=== PATIENT | male | born 1970 | race Caucasian/White ===

== ENCOUNTER 2022-12-02 01:08 | Inpatient (IN) | payer MEDICAID, SELFPAY ==
--- NOTE | ~2022-12-02 | XR_ITS ---
EXAMINATION: XR FINGER, RIGHT CLINICAL INFORMATION: Pain COMPARISON: None available. TECHNIQUE: Three views of the right third digit. FINDINGS: There is lateral radiocarpal degenerative change with loss of joint space and subchondral sclerosis. There are old healed fractures of the first and fifth metacarpals. There is flexion at the distal interphalangeal joint third digit. There are bony densities along the tip of the distal phalanx third digit. The tuft of the distal phalanx of the third metacarpal is not well seen. There is significant soft tissue swelling about the first digit. XR/XR finger RT min 2V IMPRESSION: Flexion at the distal interphalangeal joint third digit. The tuft of the distal phalanx third digit is not well seen. Bone densities along the soft tissues of the distal phalanx third digit may related to prior fracture. An infectious process is also a consideration. Correlation is needed.
[2022-12-02 01:10] VITALS: BP 180/110; PULSE 98; O2SAT 97
[2022-12-02 01:23] VITALS: BP 168/102; PULSE 86; RESP 16; TEMP 36.8; O2SAT 97; BMI 22.7
--- NOTE | 2022-12-02 01:51 | ED_ITS ---
HPI - Extremity Problem General Chief complaint: Extremity Problem Stated complaint: finger infection Time Seen by Provider: 12/02/22 01:12 Source: patient Mode of arrival: ambulatory History of Present Illness HPI Narrative: 52-year-old male, history of IVDA presents with right middle finger that he feels is infected as it is swollen, red but he denies ability to feel pain in that and states that this is been ongoing for approximately 1 week. He denies any fever, chills, shortness of breath or chest pain/palpitations. He last used today. Related Data Allergies Allergy/AdvReac Type Severity Reaction Status Date / Time No Known Allergies Allergy Unverified 12/16/19 19:38 [No Known Allergies*] Review of Systems Review of Systems: Pertinent positives and negatives as stated in [facility] Past Medical History Source: nursing notes reviewed Medical History IV drug user Polysubstance use disorder Tobacco use disorder Social History Social History Alcohol intake: former Patient Tobacco Use Status: Never used Tobacco Smoked in Last 30 Days: Yes Use of substances other than those prescribed or required for medical reasons: Yes Substance Use Type: Crack/Cocaine and Heroin Advance Directives: No Advance Directives Information Provided: No Physical Exam Vital Signs: Vital Signs: Last Vital Signs Temp 98.1 F 12/02/22 04:20 Pulse 86 12/02/22 04:20 Resp 14 12/02/22 04:20 BP 134/80 12/02/22 04:20 Pulse Ox 95 12/02/22 04:20 O2 Del Method Room Air 12/02/22 04:20 BMI result Body Mass Index 22.7 VITAL SIGNS: Reviewed. GENERAL: Well developed, well nourished, in no acute distress. HEAD: Normocephalic/atraumatic EYES: PERRLA, EOMI EARS: Ext canals without abnormality NOSE: Nares patent bilateral OROPHARYNX: no oral lesions noted, posterior pharynx clear NECK: Supple, no adenopathy LUNGS: Normal breath sounds. No adventitious sounds or accessory muscle use. SpO2<97> CARDIOVASCULAR: Regular rate and rhythm without noted murmurs. ABDOMEN: Soft, non-tender, non-distended with bowel sounds. MUSCULOSKELETAL: No tenderness, deformities, or effusions noted on gross inspection. EXTREMITIES: No cyanosis, clubbing or edema. Bilateral upper extremities with significant track suarez consistent with patient's provided history of IVDA. RIGHT MIDDLE FINGER: Edematous, lack of sensation, boggy, necrotic tip SKIN: Inspection of the skin reveals no rashes NEUROLOGIC: Alert and oriented x 4. Strength and sensation to light touch were grossly intact x 4. Medications Administered Discontinued Medications Generic Name Dose Route Start Last Admin Trade Name Fredelfina PRN Reason Stop Dose Admin Piperacillin Sod/Tazobactam 50 mls @ 100 mls/hr 12/02/22 02:38 12/02/22 04:18 Sod 3.375 gm/ Sodium Chloride IV 12/02/22 03:07 Infused ONCE ONE Infusion Vancomycin HCl 1,000 mg/ 535 mls @ 267.5 mls/hr 12/02/22 02:45 12/02/22 03:54 Vancomycin HCl 750 mg/ Sodium IV 12/02/22 04:44 267.5 mls/hr Chloride ONCE ONE Administration Protocol Lorazepam 0.5 mg 12/02/22 02:29 12/02/22 02:49 Lorazepam 0.5 Mg Tablet PO 12/02/22 02:30 0.5 mg ONCE ONE Administration Nicotine 21 mg 12/02/22 02:29 12/02/22 02:49 Nicotine 21 Mg Patch.Td24 TRANSDERMA 12/02/22 02:30 21 mg ONCE ONE Administration Medical Decision Making Medical Decision Making [facility] Narrative: 52-year-old male with history and clinical presentation, DDX: Gangrene of right middle finger inciting etiology unclear but there is black necrosis at the tip and pre limit view of the x-ray demonstrates rate appears to be a dislocated tuft that appears necrotic, after extensive discussion with the patient he has agreed to stay for admission and further evaluation by Hand surgery. Patient will receive IV fluids, antibiotics, lactic acid and blood cultures. I reviewed all investigations and hematologic indices are negative for leukocytosis or left shift but there is a noted elevation in platelet count and a normocytic anemia. Hematologic indices do not demonstrated any electrolyte or liver enzyme abnormalities and there is no MIGNON. X-rays significant for bony destruction and otherwise my interpretation is in agreement with radiology's impression. I discussed case with inpatient hospitalist who accepts admission. Differential Diagnosis Differential Diagnoses: The differential diagnosis associated with the presentation includes Please see the discussion above Admission/Observation Consideration of admission/observation: Escalation of care including admission/observation considered Please see the discussion above Consult Healthcare Provider Management of the patient was discussed with: Hospitalist Please see the discussion above Lab Data MDM Lab Attestation statement: I reviewed the patient's lab results. Please see the discussion above 12/02/22 03:29 12/02/22 03:29 Independent Interpretation I performed an independent interpretation of an: EKG Interpretation: Normal sinus rhythm, HR-83, no STEMI, ID/QRS/QTC are within normal limits. Radiology Impression Radiologist Impression: Please see the discussion above Chronic Conditions Patient?s care impacted by: Other Chronic substance use Social Determinants Patient?s care significantly limited by Social Determinants of Health including: Alcoholism and drug addiction in family Procedures EJ/Peripheral Line Arm R: Time Out Performed: No Skin Cleansed in Sterile Fashion: Yes Size (gauge): 20 IV Secured and Dressing Applied: Yes Patient Tolerated Procedure: well Additional Comments: This peripheral IV was placed by ultrasound. Arm L: Time Out Performed: No Skin Cleansed in Sterile Fashion: Yes Size (gauge): 18 IV Secured and Dressing Applied: Yes Patient Tolerated Procedure: well Additional Comments: This IV was placed by ultrasound. Critical Care Time Critical Care Time Critical Care Time: Yes Total Critical Care Time: 30 Attestation: I personally attest to this time spent taking care of the patient. Discharge Plan Discharge Clinical Impression: Polysubstance use disorder, IV drug user, Wet gangrene Patient Disposition: Admitted As Inpatient
--- NOTE | 2022-12-02 02:22 | PC.NURSE ---
Attempted to establish IV x2 without success. Patient tolerated procedure well. Provider aware.
--- NOTE | 2022-12-02 02:39 | ECG_ITS ---
Test Reason : SUBSTANCE USE Blood Pressure : / mmHG Vent. Rate : 083 BPM Atrial Rate : 083 BPM P-R Int : 172 ms QRS Dur : 088 ms QT Int : 386 ms P-R-T Axes : 079 080 070 degrees QTc Int : 453 ms Normal sinus rhythm Normal ECG No previous ECGs available Referred By: Yina Ivan Electronically Signed By:TRAE KAY
[2022-12-02] MEDS: Nicotine 21 MG PATCH.TD24 TRANSDERMA (02:49)
[2022-12-02] MEDS: LORazepam 0.5 MG TABLET PO (02:49)
--- NOTE | 2022-12-02 03:13 | P.HPHOSP_ITS ---
History of Present Illness Date of Service: 12/02/22 Chief Complaint: Finger infection This is a 52-year-old male with pertinent history of IV polysubstance use disorder, tobacco use disorder who presents to the emergency department for evaluation of finger infection. Patient states he 1st noticed swelling of his right middle finger about a week ago. It has been progressive, red and warm. Admits to using IV heroin and cocaine. Patient states that it intermittently drains purulent fluid. He denies fever, chills, chest discomfort, palpitations, shortness of breath, changes in urinary or bowel habits. In the emergency department, imaging with concerns for underlying infection Review of Systems Constitutional: Constitutional: Reports no additional constitutional complaints Cardiovascular: Cardiovascular: Reports no additional cardiovascular co mplaints Respiratory: Respiratory: Reports no additional respiratory complaints Gastrointestinal: Gastrointestinal: Reports no additional gastrointestinal complaints Genitourinary: Genitourinary: Reports no additional male genitourinary c omplaints Musculoskeletal: Musculoskeletal: Reports arthralgias and Reports joint swelling [facility] Medical History IV drug user Polysubstance use disorder Tobacco use disorder Pertinent family history: No family history of early CAD Social History Alcohol intake: former Patient Tobacco Use Status: Never used Tobacco Substance Use Type: Crack/Cocaine and Heroin Meds Allergies Allergy/AdvReac Type Severity Reaction Status Date / Time No Known Allergies Allergy Unverified 12/16/19 19:38 [No Known Allergies*] Active Medications: Current Medications Vancomycin HCl 1,000 mg/Vancomycin HCl 750 mg/ Sodium Chloride 535 mls @ 267.5 mls/hr IV ONCE ONE; Protocol Stop: 12/02/22 04:44 Pharmacy Consult (Consult Rx Vancomycin Dosing) 1 each MISCELLANE DAILY PRN PRN Reason: Consult order Physical Exam Vital Signs and Narrative: Vital Signs: Last Vital Signs Temp 98.3 F 12/02/22 01:23 Pulse 86 12/02/22 01:23 Resp 16 12/02/22 01:23 BP 168/102 H 12/02/22 01:23 Pulse Ox 97 12/02/22 01:23 O2 Del Method Room Air 12/02/22 01:23 BMI result Body Mass Index 22.7 Middle-aged male lying in bed in no distress Neck supple, no JVD Regular rate and rhythm, S1-S2 heard Regular breath sounds bilaterally, no wheezing or crackles appreciated Abdomen soft nontender, no guarding, no rigidity Patient is awake, alert and oriented to self, place, time and person ; no focal motor deficit Skin: Bilateral upper extremities with track suarez Right middle finger edematous, warm, erythematous with purulent drainage ; necrotic tip Psych: Normal mood No pedal edema Results Labs 12/02/22 03:29 12/02/22 03:29 Assessment and Plan (1) Cellulitis: Status: Acute (2) Wet gangrene: Status: Acute Plan This is a 52-year-old male with pertinent history of IV polysubstance use disorder, tobacco use disorder who presents to the emergency department for evaluation of finger infection. #. Purulent cellulitis of digit with wet gangrene. Concern for underlying bone infection. Will admit patient and initiate IV empiric antibiotics. Resuscitated with IV crystalloids. Consulting orthopedic surgery, appreciate assistance. Follow blood cultures #. Tobacco use disorder. Counseled regarding cessation. Offered nicotine patch #. Poly substance use disorder. Consulted Addiction Team and care team. Monitor for withdrawal DVT prophylaxis: Hold Lovenox until surgical evaluation Full code Admit as inpatient and will require two night minimum hospital stay for IV antibiotics. Specialist consult pending Time Spent With Patient Time: Total time managing care of this patient today ____ minutes. Quality Stroke Does the patient have a stroke diagnosis?: No VTE Prior VTE?: No VTE Risk Level:: Medical - moderate - high VTE Device Contraindication: Treatment Not Indicated VTE Drug Contraindication: Treatment Not Indicated
[2022-12-02 03:35] LABS: Basophils Percent Auto 0.4 % (0-2); Eosinophils Absolute Auto 0.3 X10*3/uL (0.0-0.4); Eosinophils Percent Auto 3.4 % (0-4); Hematocrit 39.3 % (42.0-52.0); Hemoglobin 13.2 g/dl (14.0-18.0); Imm Gran Abs Auto 0.03 X10*3/uL (0.00-0.03); Imm Gran Pct Auto 0.3 % (0.0-0.4); Lymphocytes Absolute Auto 2.1 X10*3/uL (1.2-4.9); Lymphocytes Percent Auto 23.1 % (20-40); MANUAL DIFF FLAG NO; Mean Corpuscular HGB Conc 33.6 g/dl (31.0-36.0); Mean Corpuscular Hemoglobin 30.6 pg (27.0-33.0); Mean Corpuscular Volume 91.2 fL (80.0-98.0); Mean Platelet Volume 8.8 fL (9.4-12.4); Monocytes Absolute Auto 0.6 X10*3/uL (0.1-1.2); Neutrophils Absolute Auto 5.9 x10*3/uL (2.0-8.3); Neutrophils Percent Auto 65.8 % (45-73); Platelet Count 484 X10*3/uL (160-400); Red Blood Count 4.31 X10*6/uL (4.60-5.80); Red Cell Distribution Width 12.9 % (11.0-16.0)
[2022-12-02] MEDS: Piperacillin Sodium/Tazobactam 3.375 GM in 0.9 % Sodium Chloride 50 ML IV (03:36)
[2022-12-02 03:52] LABS: Lactic Acid 0.8 mmol/L (0.5-2.0)
[2022-12-02] MEDS: vancomycin HCL 1,000 MG, vancomycin HCL 750 MG in 0.9 % Sodium Chloride 500 ML 267.5 MG IV (03:54)
--- NOTE | 2022-12-02 03:57 | PC.NURSE ---
Pt is A&Ox4, GCS 15, with warm, dry skin, resting quietly in bed at this time. Dr Ivan placed bilateral IV's via ultrasound, medications administered per MAY. Pt reports no pain at this time, but was complaining of pressure in his right middle finger. Dr Ivan drained some puss from the finger and pt stated some relief.
[2022-12-02 04:03] LABS: Alanine Aminotransferase 10 U/L (0-40); Alkaline Phosphatase 79 U/L (39-117); Anion Gap 11 (12-20); Aspartate Amino Transferase 16 U/L (5-37); Bilirubin Total 0.3 mg/dL (0.0-1.0); Blood Urea Nitrogen 15 mg/dL (9-16); Calcium 9.7 mg/dL (8.4-10.2); Carbon Dioxide 31 mmol/L (22-29); Chloride 102 mmol/L (96-108); Creatinine Clr Calc Pharmacy 92.6; Estimated Glomerular Filt Rate > 60; Glucose Random 110 mg/dL (60-115); Potassium 3.9 mmol/L (3.3-5.1); Sodium 140 mmol/L (135-145); Total Protein 7.7 g/dL (6.5-8.0)
[2022-12-02 04:20] VITALS: BP 134/80; PULSE 86; RESP 14; TEMP 36.7; O2SAT 95
--- OUTSIDE RECORDS SUMMARY | 2022-12-02 04:46 | XMS_ITS | Continuity of Care Document ---
Author Name Unknown Organization [facility] Address [address] [place] [address]- Care Team Providers Care Menagerie Superintendent Name Role Phone Zion SAHNI, Brenda Perry Primary Care Physician [id number] Date[facility] - 02/02/21 [facility] [address] [place] [address]- Encounter Diagnosis Hand pain, right(Discharge Diagnosis) - 01/26/21 Wrist pain, right(Discharge Diagnosis) - 01/26/21 Attending Physician: Mireya CERVANTES, Julieta Referring Physician: Brenda Donovan MD Allergies, Adverse Reactions, Alerts Substance Reaction Severity Status NKA Active Immunizations Given and Recorded Vaccine Date Status Refusal Reason influenza virus vaccine, inactivated 06/03/16 Give n influenza virus vaccine, inactivated 12/14/13 Give n influenza virus vaccine, inactivated 1 05/31/10 Gi dangelo tetanus/diphtheria/pertussis, acel(Tdap) 12/14/13 Given 1Admin Note: per pt Medications amLODIPine 2.5 mg oral tablet 1, tablet, By Mouth, Daily, # 90 tablet, Refills 1, Tot. Refills 1, Maintenance, 10/04/16 10:03:51,Route to Pharmacy Electronically, [id number], [facility]/pharmacy #[id number] Start Date: 10/04/16 Stop Date: 04/02/17 Status: Ordered folic acid 1 mg oral tablet 1 tablet = 1 mg, By Mouth, Daily, 0 Refills, Maintenance Start Date: 12/02/10 Status: Ordered naproxen 500 mg oral tablet 1 tablet = 500 mg, By Mouth, 2 times a day, for 14 days, # 28 tablet, 0 Refills, Acute 02/09/21 15:53:00 EST, 01/26/21 15:53:00 EDT, Tablet, [facility]/pharmacy #[id number], Partial fill upon patient request if the prescription is for a schedule II opioid drug., 1... Start Date: 01/26/21 Stop Date: 02/09/21 Status: Ordered Narcan 4 mg/0.1 mL nasal spray = 4 mg, Nares, Both, Once, # 2 each, 0 Refills, Soft Stop, 10/05/16 12:27:24 Start Date: 10/05/16 Status: Ordered sertraline 100 mg oral tablet 1 tablet = 100 mg, By Mouth, Daily, # 90 tablet, 1 Refills, Maintenance, 10/04/16 10:03:39 Start Date: 10/04/16 Stop Date: 04/02/17 Status: Ordered Problem List Condition Effective Dates Status Health Status Inform ant Alcohol dependence syndrome(Confirmed) Active Herpes labialis(Confirmed) Active Hyperlipidemia(Confirmed) Active Hypertension(Confirmed) 07/25/10 Active Mood disorder(Confirmed) Active Diagnosis Diagnosis Type Effective Dates Health Status Cl inical Service Informant Hand pain, right Discharge Diagnosis 01/26/21 Wrist pain, right Discharge Diagnosis 01/26/21 Vital Signs Most recent to oldest [Reference Range]: 1 Height 176 cm (01/26/21 3:23 PM) Weight 65.8 kg (01/26/21 3:23 PM) Pulse Rate [55-90 bpm] 79 bpm (01/26/21 3:23 PM) Body Mass Index [18.5-24.99] 21.24 (01/26/21 3:23 PM) Blood Pressure [90-138/55-84 mm Hg] 120/ 80mm Hg (01/26/21 3:23 PM) Temperature Route Temporal (01/26/21 3:23 PM) Social History Social History Type Response Smoking Status Current every day fidel kirby; Tobacco user in household: Yes; Type: Cigarettes; Tobacco use times per day: 1 ppd- 1.5 ppd; Number of years: 26; Started at age: 20; entered on: 06/03/16 Sex
--- OUTSIDE RECORDS SUMMARY | 2022-12-02 04:46 | XMS_ITS | Continuity of Care Document ---
Author Name Unknown Organization [facility] Address [address] [place] [address]- Care Team Providers Care Information Systems Supervisor Name Role Phone Zion SAHNI, Brenda Perry Primary Care Physician [place] [facility] [place]s): 08/02/21 - 09/01/21 [facility] [address] [place], [place] [address] Attending Physician: Ivett Salcedo Admitting Physician: Ivett Salcedo Referring Physician: AdmtrIvett Allergies, Adverse Reactions, Alerts No Known Allergies Immunizations Given and Recorded Vaccine Date Status [...] 1, Maintenance, 10/04/16 10:03:51,Route to Pharmacy Electronically, [id number], [facility]/pharmacy #[id number] Start Date: 10/04/16 Stop Date: 04/02/17 Status: Ordered folic acid 1 mg oral tablet 1 tablet = 1 mg, By Mouth, Daily, 0 Refills, Maintenance Start Date: 12/02/10 Status: Ordered Narcan 4 mg/0.1 mL nasal [...] Active Hypertension(Confirmed) 07/25/10 Active Mood disorder(Confirmed) Active Social History Social History Type Response Smoking Status Current every day fidel kirby; Tobacco user in household: Yes; Type: Cigarettes; Tobacco use times per day: 1 ppd- 1.5 ppd; Number of years: 26; Started at age: 20; entered on: 06/03/16 Sex
--- OUTSIDE RECORDS SUMMARY | 2022-12-02 04:46 | XMS_ITS | Continuity of Care Document ---
Author Name Unknown Organization [facility] Address [address] [place] [address]- Care Team Providers Care Platform Stapler Name Role Phone Zion SAHNI, Brenda Perry Primary Care Physician Encounter [facility] Date(s): 02/20/21 - 03/22/21 [facility] [address] [place], [place] [address] Attending Physician: Ivett Salcedo Admitting Physician: Ivett Salcedo Referring Physician: AdmtrIvett Allergies, Adverse Reactions, Alerts Substance Reaction Severity [...] 1, Maintenance, 10/04/16 10:03:51,Route to Pharmacy Electronically, [id number], [facility]/pharmacy #[id number] Start Date: 10/04/16 Stop Date: 04/02/17 [...]
--- OUTSIDE RECORDS SUMMARY | 2022-12-02 04:46 | XMS_ITS | Continuity of Care Document ---
Author Name Unknown Organization [facility] ter Address [address] [place] [address]- Care Team Providers Care Repairer Typewriter Name Role Phone Brenda Donovan MD Primary Care Physician [phone] [facility] Date(s): 12/11/21 - 12/12/[address] [address]- Discharge Disposition: A-D/C Home Attending Physician: Rosanne Maldonado DO Admitting Physician: Rosanne Maldonado DO Referring Physician: Not on Staff, Referring MD Allergies, Adverse Reactions, Alerts No Known Allergies [...] 1, Maintenance, 10/04/16 10:03:51,Route to Pharmacy Electronically, [id number], [facility]/pharmacy #[id number] Start Date: 10/04/16 Stop Date: 04/02/17 [...] Active Hypertension(Confirmed) 07/25/10 Active Mood disorder(Confirmed) Active Vital Signs Most recent to oldest [Reference Range]: 1 2 3 Weight 68 kg (12/12/21 9:05 AM) Oxygen Saturation [94-100 %] 98 % (12/12/21 9:05 AM) 95 % (12/12/21 5:57 AM) 91 % *L* (12/11/21 10:22 PM) Pulse Rate [55-90 bpm] 97 bpm *H* (12/12/21 9:05 AM) 101 bpm *H* (12/12/21 5:57 AM) 101 bpm *H* (12/11/21 10:22 PM) Blood Pressure [90-138/55-84 mm Hg] 121/81mm Hg (12/12/21 9:05 AM) 114/81mm Hg (12/12/21 5:57 AM) 117/65mm Hg (12/11/21 10:22 PM) Respiratory Rate [16-30 br/min] 16 br/min (12/12/21 9:05 AM) 16 br/min (12/12/21 5:57 AM) 18 br/min (12/11/21 10:22 PM) Temperature [96.8-100.4 DegF] 98.7 DegF (12/12/21 9:05 AM) 98.6 DegF (12/11/21 10:22 PM) Mode of Delivery (Oxygen) Room air (12/12/21 9:05 AM) Room air (12/12/21 5:57 AM) Room air (12/11/21 10:22 PM) Temperature Route Oral (12/12/21 9:05 AM) Oral (12/11/21 10:22 PM) Social History Social History Type Response Smoking Status Current every day sm oker; Tobacco user in household: Yes; Type: Cigarettes; Tobacco use times per day: 1 ppd- 1.5 ppd; Number of years: 28; Started at age: 20; entered on: 06/03/16 Sex Care Team Personnel Name: Zion SAHNI, Brenda Perry Address: [address] [place] [address] Adult & Pediatric Med [place], [place] [address]
--- OUTSIDE RECORDS SUMMARY | 2022-12-02 04:46 | XMS_ITS | Continuity of Care Document ---
Author Name Unknown Organization [facility] Address [address] [place] [address]- Care Team Providers Care Medical Billing And Coding Specialist Name Role Phone Zion SAHNI, Brenda Perry Primary Care Physician [phone] Encounter [facility] [place] Date(s): 02/16/21 - 03/22/21 [facility] [address] [place], [place] [address] Attending Physician: Parker David MD Allergies, Adverse Reactions, Alerts Substance Reaction [...] 1, Maintenance, 10/04/16 10:03:51,Route to Pharmacy Electronically, [id number], [facility]/pharmacy #[id number] Start Date: 10/04/16 Stop Date: 04/02/17 [...]
--- OUTSIDE RECORDS SUMMARY | 2022-12-02 04:46 | XMS_ITS | Continuity of Care Document ---
Author Name Unknown Organization [facility] Address [address] [place] [address]- Care Team Providers Care Accountant Helper Name Role Phone Brenda Donovan MD Primary Care Physician Encounter [facility] [place] Date(s): 05/17/22 - 06/16/22 [facility] [address] [place], [place] [address] Encounter Diagnosis Cellulitis of arm(Discharge Diagnosis) - 05/17/22 Cellulitis of leg(Discharge Diagnosis) - 05/17/22 Allergies, Adverse Reactions, Alerts No Known Allergies [...] 1, Maintenance, 10/04/16 10:03:51,Route to Pharmacy Electronically, [id number], [facility]/pharmacy #[id number] Start Date: 10/04/16 Stop Date: 04/02/17 [...] Date: 04/02/17 Status: Ordered Problem List Condition Confirmation Course Effective Dates Status H ealth Status Informant Alcohol dependence syndrome Confirmed Active Cellulitis of leg Confirmed Active Cellulitis of arm Confirmed Active Herpes labialis Confirmed Active Hyperlipidemia Confirmed Active Hypertension Confirmed 07/25/10 Active Intravenous drug abuse, continuous Confirmed Active Mood disorder Confirmed Active Diagnosis Diagnosis Type Effective Dates Health Status Clinical Service Informant Cellulitis of arm Discharge Diagnosis 05/17/22 Non-Specified Cellulitis of leg Discharge Diagnosis 05/17/22 Non-Specified Social History Social History Type Response Smoking Status Current every day sm oker; Tobacco user in household: Yes; Type: Cigarettes; Tobacco use times per day: 1 ppd- 1.5 ppd; Number of years: 28; Started at age: 20; entered on: 06/03/16 Sex Patient Care team information Care Team Personnel Name: Zion SAHNI, Brenda Perry Position: [facility] Primary Care Physician Member Role: PCP Address: Address: [address] [place] [address] Adult [place] [address]- Care Team Related Persons Name: BLESSING QURESHI Address: home [address] [address] Name: KAREN NOYOLA Address: [address] [place] [address] Name: NATY NOYOLA Address: [address] [place] [address]
--- OUTSIDE RECORDS SUMMARY | 2022-12-02 04:46 | XMS_ITS | Continuity of Care Document ---
Author Name Unknown Organization [facility] Address [address] [place] [address]- Care Team Providers Care Chief Engineer Research Name Role Phone Brenda Donovan MD Primary Care Physician [phone] Encounter [facility] [place] Date(s): 05/03/22 - 06/02/22 [facility] [address] [place], [place] [address] Attending Physician: AdmIvett mary Admitting Physician: AdmtrIvett Referring Physician: Admtr, Ar8 Allergies, Adverse Reactions, Alerts No Known Allergies [...] 1, Maintenance, 10/04/16 10:03:51,Route to Pharmacy Electronically, [id number], [facility]/pharmacy #[id number] Start Date: 10/04/16 Stop Date: 04/02/17 [...] continuous Confirmed Active Mood disorder Confirmed Active Social History Social History Type Response Smoking Status Current every day sm oker; Tobacco user in household: Yes; Type: Cigarettes; Tobacco use times per day: 1 ppd- 1.5 ppd; Number of years: 28; Started at age: 20; entered on: 06/03/16 Sex Patient Care team information Care Team Personnel Name: Zion SAHNI, Brenda Perry [facility] Primary Care Physician Member Role: PCP Address: Address: [address] [place] [address] Adult [place] [address]- Care Team Related Persons Name: BLESSING QURESHI Address: home [address] [address] Name: KAREN NOYOLA Address: [address] [place] [address] Name: NATY NOYOLA Address: home [address] [place] [address]
--- OUTSIDE RECORDS SUMMARY | 2022-12-02 04:46 | XMS_ITS | Continuity of Care Document ---
Author Name Unknown Organization [facility] Address [address] [place] [address]- Care Team Providers Care Dietitian Consultant Name Role Phone Brenda Donovan MD Primary Care Physician [phone] Encounter [facility] Date(s): 05/03/22 - 08/01/22 [facility] [address] [place], [place] [address] Attending Physician: Brenda Donovan MD Allergies, Adverse Reactions, Alerts No Known [...] 1, Maintenance, 10/04/16 10:03:51,Route to Pharmacy Electronically, [id number], [facility]/pharmacy #[id number] Start Date: 10/04/16 Stop Date: 04/02/17 [...] Personnel Name: Zion SAHNI, Brenda Perry Position: [facility] Primary Care Physician Member Role: PCP Address: Address: [address] [place] [address] [place] [address]- Care Team Related Persons Name: BLESSING QURESHI Address: home [address] [address] Name: KAREN NOYOLA Address: [address] [place] [address] Name: NATY NOYOLA Address: [address] [place] [address]
--- OUTSIDE RECORDS SUMMARY | 2022-12-02 04:46 | XMS_ITS | Continuity of Care Document ---
Author Name Unknown Organization [facility] Address [address] [place] [address]- Care Team Providers Care Program Developer Name Role Phone Zion SAHNI, Brenda Perry Primary Care Physician [phone] [id number] - [facility] [address] [place], [place] [address] Attending Physician: Brenda Donovan MD Allergies, Adverse [...] 1, Maintenance, 10/04/16 10:03:51,Route to Pharmacy Electronically, [id number], [facility]/pharmacy #[id number] Start Date: 10/04/16 Stop [...]
--- OUTSIDE RECORDS SUMMARY | 2022-12-02 04:46 | XMS_ITS | Continuity of Care Document ---
Author Name Unknown Organization [facility] Address [address] [place] [address]- Care Team Providers Care Translator/Interpreter Name Role Phone Brenda Donovan MD Primary Care Physician Encounter [facility] R [id number] Date(s): 05/04/21 - 09/01/21 [facility] [address] [place], [place] [address] Attending Physician: Brenda Donovan MD Allergies, [...] 1, Maintenance, 10/04/16 10:03:51,Route to Pharmacy Electronically, [id number], [facility]/pharmacy #[id number] Start Date: 10/04/16 Stop Date: 04/02/17 [...]
--- OUTSIDE RECORDS SUMMARY | 2022-12-02 04:46 | XMS_ITS | Continuity of Care Document ---
Author Name Unknown Organization [facility] Address [address] [place] [address]- Care Team Providers Care Ice Seller Name Role Phone Brenda Donovan MD Primary Care Physician Encounter [facility] [id number] Date(s): 02/14/21 - 03/22/21 [facility] [address] [place], [place] [address] Attending Physician: Not on Staff, Attending MD Allergies, Adverse Reactions, Alerts Substance Reaction [...] 1, Maintenance, 10/04/16 10:03:51,Route to Pharmacy Electronically, [id number], [facility]/pharmacy #[id number] Start Date: 10/04/16 Stop Date: 04/02/17 [...]
[2022-12-02 05:07] LABS: C Reactive Protein 0.83 mg/dL (< or = 0.50)
[2022-12-02 05:58] VITALS: BMI 22.9
--- NOTE | 2022-12-02 06:24 | PC.NURSE ---
Addendum entered by Abigail Jose RN 12/02/22 06:44: Pt refused to have the flu shot. Original Note: Pt arrived from the ED at 0556 per stretcher alert and oriented, denies any discomfort, noted with dressing on right mid finger CDI, Bilat arms and hands are swollen and red also with multiple scabbed lesions, +PP, +CMS, plan of care and safety measures instructed, use of callbell instructed, pt verbalized feeling tired, and was able to answer questions appropriately.
[2022-12-02 07:05] VITALS: BP 141/82; PULSE 79; RESP 17; TEMP 36.1; O2SAT 96
--- NOTE | 2022-12-02 07:23 | PHA.PROG ---
"Admission Date/Time: December 02, 2022 03:12 Indication: Skin Weight in k.3 kg Adjusted body weight in Kg: [place] body weight in Kg: Obesity Dosing Indication % IBW: Serum Creatinine - Last 168 Hours 12/02/22 03:29 Creatinine 0.94 Estimated CrCl and GFR - Last 168 Hours 12/02/22 03:29 Estim Creat Clear Calc 92.6 Estimated GFR > 60 Vancomycin Loading Dose: 1750mg X 1 Current Vancomycin Dosing Regimen: 1000mg Q12H Vancomycin Monitoring using AUC goal of 400 - 600 range with trough as surrogate marker: 462 mg/L Date and Time for next Vancomycin Level to be drawn: 12/03/22 @1400 Pharmacist Comments on Vancomycin Plan: Predicted trough of 11.9, will continue to monitor renal function Vancomycin dosing will take advantage of [employer] as a clinical decision support tool that uses Bayesian modeling to calculate individual patient's pharmacokinetic parameters and forecast the patient's drug concentration time course with the target goal AUC 24 range of 400 - 600 mg/L/hr."
[2022-12-02] MEDS: cefTRIAXone sodium 1 GM in 0.9 % Sodium Chloride 50 ML IV (08:35)
[2022-12-02] MEDS: 0.9 % Sodium Chloride Flush 3 ML SYRINGE IVFLUSH (08:39)
[2022-12-02 09:15] LABS: MANUAL DIFF FLAG NO
[2022-12-02 09:17] LABS: Basophils Percent Auto 0.2 % (0-2); Eosinophils Absolute Auto 0.2 X10*3/uL (0.0-0.4); Eosinophils Percent Auto 2.8 % (0-4); Hematocrit 40.7 % (42.0-52.0); Hemoglobin 13.7 g/dl (14.0-18.0); Imm Gran Abs Auto 0.02 X10*3/uL (0.00-0.03); Imm Gran Pct Auto 0.2 % (0.0-0.4); Lymphocytes Absolute Auto 1.7 X10*3/uL (1.2-4.9); Lymphocytes Percent Auto 20.8 % (20-40); Mean Corpuscular HGB Conc 33.7 g/dl (31.0-36.0); Mean Corpuscular Hemoglobin 30.8 pg (27.0-33.0); Mean Corpuscular Volume 91.5 fL (80.0-98.0); Mean Platelet Volume 8.8 fL (9.4-12.4); Monocytes Absolute Auto 0.6 X10*3/uL (0.1-1.2); Monocytes Percent Auto 6.7 % (2-11); Neutrophils Absolute Auto 5.8 x10*3/uL (2.0-8.3); Neutrophils Percent Auto 69.3 % (45-73); Platelet Count 387 X10*3/uL (160-400); Red Blood Count 4.45 X10*6/uL (4.60-5.80); White Blood Count 8.3 X10*3/uL (4.8-10.8)
[2022-12-02 10:04] LABS: Anion Gap 11 (12-20); Blood Urea Nitrogen 13 mg/dL (9-16); Carbon Dioxide 25 mmol/L (22-29); Chloride 107 mmol/L (96-108); Creatinine Clr Calc Pharmacy 95.5; Estimated Glomerular Filt Rate > 60; Glucose Random 108 mg/dL (60-115); Potassium 4.1 mmol/L (3.3-5.1); Sodium 139 mmol/L (135-145)
--- NOTE | 2022-12-02 10:11 | PHA.MEDREC ---
Pharmacy Consult ? Medication Reconciliation Patient unable to confirm if he is currently in any prescribed medicatioins. Pharmacy has completed the medication reconciliation.
--- NOTE | 2022-12-02 10:28 | PM.EVENT ---
Event Note Date of Service: 12/02/22 Event Note: Personally seen and examined. A/P Per H and P of this morning, pending ortho consult... See imaging in ED note Time Spent With Patient Time: Total time managing care of this patient today ____ minutes.
--- NOTE | 2022-12-02 12:12 | P.DS_ITS ---
DS: Providers Provider Date of Service: 12/02/22 Date of admission: 12/02/22 03:12 Primary care physician: Brenda Donovan MD Consults: 12/02/22 02:37 Addiction Medicine Stat Consulting Provider: Addiction Covering Reason for consultation: 52M requires inpt for infected finger and every day heroin Has provider been notified: No 12/02/22 03:13 Consult to Care Team Routine Comment: Reason for consultation: polysubstance use disorder 12/02/22 04:38 Consult to Orthopedics Routine Consulting Provider: [facility] Reason for consultation: finger infection DS: Diagnosis Discharge Diagnosis (1) Cellulitis: Status: Acute (2) Wet gangrene: Status: Acute DS: Summary Hospital Course Hospital Course: Patient was admittted this morning for cellulitis and gangrene of right middle finger and was been treated with IV antibiotics and surgery planned ampuation. Unfortuately he decided to leave against medical and claim he will come back to [place]. Risk of serious infection, leading to sepsis, loss of limb and even was disdcussed with him and is taking my chances . He would not disclose why he's leaving. He was alert, oriented to self place and time and proceed to sign the AMA. I offered oral Doxycline 100 mg twice daily as alternative. Advise to follow up with PCP and may return to the ED. Time Spent with Patient Time attestation: Total time managing care of this patient today ____ minutes. Discharge coordination time: Greater than 30 minutes Quality: Safe Use of Opioids Does Pt have an Active Cancer Diagnosis on the Problem List?: No Quality: Stroke Does the patient have a stroke diagnosis?: No Physical Exam Vital Signs: Vital Signs: Last Vital Signs Temp 97 F 12/02/22 07:05 Pulse 79 12/02/22 07:05 Resp 17 12/02/22 07:05 BP 141/82 H 12/02/22 07:05 Pulse Ox 96 12/02/22 07:05 O2 Del Method Room Air 12/02/22 07:05 BMI result Body Mass Index 22.9 DS: Data Data Completed and Pending Labs on day of discharge: Laboratory Results - last 24 hr 12/02/22 12/02/22 12/02/22 03:29 03:29 03:30 WBC 9.0 RBC 4.31 L Hgb 13.2 L Hct 39.3 L MCV 91.2 MCH 30.6 MCHC 33.6 RDW 12.9 Plt Count 484 H MPV 8.8 L Immature Gran % (Auto) 0.3 Neut % (Auto) 65.8 Lymph % (Auto) 23.1 [place] % (Auto) 7.0 Eos % (Auto) 3.4 Baso % (Auto) 0.4 Lymph # (Auto) 2.1 [place] # (Auto) 0.6 Eos # (Auto) 0.3 Baso # (Auto) 0.0 Abs Immat Gran (auto) 0.03 Absolute Neuts (auto) 5.9 Absolute Nucleated RBC 0.000 Nucleated RBC % (auto) 0.0 Sodium 140 Potassium 3.9 Chloride 102 Carbon Dioxide 31 H Anion Gap 11 L BUN 15 Creatinine 0.94 Estim Creat Clear Calc 92.6 Estimated GFR > 60 Random Glucose 110 Lactic Acid 0.8 Calcium 9.7 Total Bilirubin 0.3 AST 16 ALT 10 Alkaline Phosphatase 79 C-Reactive Protein 0.83 H Total Protein 7.7 Albumin 4.0 12/02/22 12/02/22 05:00 05:00 WBC 8.3 RBC 4.45 L Hgb 13.7 L Hct 40.7 L MCV 91.5 MCH 30.8 MCHC 33.7 RDW 13.0 Plt Count 387 MPV 8.8 L Immature Gran % (Auto) 0.2 Neut % (Auto) 69.3 Lymph % (Auto) 20.8 [place] % (Auto) 6.7 Eos % (Auto) 2.8 Baso % (Auto) 0.2 Lymph # (Auto) 1.7 [place] # (Auto) 0.6 Eos # (Auto) 0.2 Baso # (Auto) 0.0 Abs Immat Gran (auto) 0.02 Absolute Neuts (auto) 5.8 Absolute Nucleated RBC 0.000 Nucleated RBC % (auto) 0.0 Sodium 139 Potassium 4.1 Chloride 107 Carbon Dioxide 25 Anion Gap 11 L BUN 13 Creatinine 0.92 Estim Creat Clear Calc 95.5 Estimated GFR > 60 Random Glucose 108 Lactic Acid Calcium 9.0 D Total Bilirubin AST ALT Alkaline Phosphatase C-Reactive Protein Total Protein Albumin Discharge Plan Discharge Anticipated Discharge Date/Time: 12/02/22 12:08 Patient Disposition: Left Against Medical Advice Discharge Diagnosis: Cellulitis and gangrene of right middle finger Referrals: Brenda Donovan MD [Primary Care Provider] - 1 Week Discharge Medications: New doxycycline hyclate 100 mg tablet 100 mg PO BID 10 Days Qty: 20 0RF Discharge Orders: Discharge Order (Routine); Ordered 12/02/22 Ordered By: Brendan Monte Diet: Advance to usual diet Activity on Discharge: As tolerated Care Plan Goals: resolution of cellulitis and gangrene and saving the finger Health Concerns: gangrene, cellulitis that can lead to sepsis Plan of Treatment: Doxycyline 100 mg twice daily, advised to return to ED if worsening, risks of leaving [facility] discussed in details Assessment: as above
--- NOTE | 2022-12-02 12:13 | MHC.CM.PN ---
PT DECLINED TO PARTICIPATE IN INTAKE ASSESSMENT. IS DC AMA.
--- NOTE | 2022-12-02 13:41 | P.PNADD_ITS ---
Subjective Subjective Date of Service: 12/02/22 Reason For Visit: Finger Infection Interim History: This advertising writer attempted to meet with patient to evaluate substance use and assess for withdrawal. Patient sleeping upon entering room. Woke to voice, but closed eyes again. Did not appear diaphoretic or restless. When asked about withdrawal sx, patient denies. UDS not collected at time of interview. unclear what substance(s) patient is using and how often. Encouraged to inform RN when withdrawal sx present as MOUD could be provided. Patient verbalized understanding, then turned to his side to continue sleeping Review of Systems Constitutional: Reports as per [facility] Mental Status Exam Mental Status Exam Affect Description: Withdrawn Diagnostics Vital Signs (24Hr): Vital Signs - 24 hr 12/02/22 01:23 12/02/22 04:20 12/02/22 07:05 Temperature 98.3 F 98.1 F 97 F Pulse Rate 86 86 79 Respiratory Rate 16 14 17 Blood Pressure 168/102 H 134/80 141/82 H Pulse Oximetry 97 95 96 Oxygen Delivery Method Room Air Room Air Room Air BMI result Body Mass Index 22.9 Labs 12/02/22 05:00 12/02/22 05:00 Labs: Laboratory Results - last 48 hr 12/02/22 12/02/22 12/02/22 03:29 03:29 03:30 WBC 9.0 RBC 4.31 L Hgb 13.2 L Hct 39.3 L MCV 91.2 MCH 30.6 MCHC 33.6 RDW 12.9 Plt Count 484 H MPV 8.8 L Immature Gran % (Auto) 0.3 Neut % (Auto) 65.8 Lymph % (Auto) 23.1 [place] % (Auto) 7.0 Eos % (Auto) 3.4 Baso % (Auto) 0.4 Lymph # (Auto) 2.1 [place] # (Auto) 0.6 Eos # (Auto) 0.3 Baso # (Auto) 0.0 Abs Immat Gran (auto) 0.03 Absolute Neuts (auto) 5.9 Absolute Nucleated RBC 0.000 Nucleated RBC % (auto) 0.0 Sodium 140 Potassium 3.9 Chloride 102 Carbon Dioxide 31 H Anion Gap 11 L BUN 15 Creatinine 0.94 Estim Creat Clear Calc 92.6 Estimated GFR > 60 Random Glucose 110 Lactic Acid 0.8 Calcium 9.7 Total Bilirubin 0.3 AST 16 ALT 10 Alkaline Phosphatase 79 C-Reactive Protein 0.83 H Total Protein 7.7 Albumin 4.0 12/02/22 12/02/22 05:00 05:00 WBC 8.3 RBC 4.45 L Hgb 13.7 L Hct 40.7 L MCV 91.5 MCH 30.8 MCHC 33.7 RDW 13.0 Plt Count 387 MPV 8.8 L Immature Gran % (Auto) 0.2 Neut % (Auto) 69.3 Lymph % (Auto) 20.8 [place] % (Auto) 6.7 Eos % (Auto) 2.8 Baso % (Auto) 0.2 Lymph # (Auto) 1.7 [place] # (Auto) 0.6 Eos # (Auto) 0.2 Baso # (Auto) 0.0 Abs Immat Gran (auto) 0.02 Absolute Neuts (auto) 5.8 Absolute Nucleated RBC 0.000 Nucleated RBC % (auto) 0.0 Sodium 139 Potassium 4.1 Chloride 107 Carbon Dioxide 25 Anion Gap 11 L BUN 13 Creatinine 0.92 Estim Creat Clear Calc 95.5 Estimated GFR > 60 Random Glucose 108 Lactic Acid Calcium 9.0 D Total Bilirubin AST ALT Alkaline Phosphatase C-Reactive Protein Total Protein Albumin Imaging Radiology Impressions: ITS Impressions Finger X-Ray 12/02/22 02:30 IMPRESSION: Flexion at the distal interphalangeal joint third digit. The tuft of the distal phalanx third digit is not well seen. Bone densities along the soft tissues of the distal phalanx third digit may related to prior fracture. An infectious process is also a consideration. Correlation is needed. Medications Allergies Allergies Allergy/AdvReac Type Severity Reaction Status Date / Time No Known Allergies Allergy Unverified 12/16/19 19:38 [No Known Allergies*] Assessment & Plan Assessment & Plan (1) Cellulitis: Status: Acute Code(s): L03.90 - Cellulitis, unspecified Assessment and Plan: * will continue to follow * collect UDS * comfort medications as needed Total time managing care of this patient today _15___ minutes.
--- NOTE | 2022-12-02 16:38 | PM.CNOR ---
History of Present Illness HPI Consult date: 12/02/22 Requesting physician: Brendan Monte Chief complaint: Finger Infection Narrative: Weeks of worsening right LF pain and deformity Daily IV heroin use PMFSH Past Medical History Medical History IV drug user Polysubstance use disorder Tobacco use disorder Social History Social History Household Members: Significant Other Housing: Apartment Do you presently have visiting nurse or other home services: No Alcohol intake: former Patient Tobacco Use Status: Current everyday Tobacco user Tobacco use type: Cigarette Smoked in Last 30 Days: Yes Patient Interested in Nicotine Replacement: Yes (started nicotine patch in the ED left shoulder) Use of substances other than those prescribed or required for medical reasons: Yes Substance Use Type: Crack/Cocaine and Heroin Substance Use Frequency: Daily Last Used Substance: Days (ago) Last Used Substance Other:: cocaineand heroin Currently Displaying Signs/Symptoms of Drug Intoxication Withdrawal: No Any prior treatment program specific to substance use: No Have you been hit, kicked, punched, or otherwise hurt by someone within the past year? If so, by whom?: No Do you feel safe in your current relationship?: Yes Is there a partner from a previous relationship who is making you feel unsafe now?: No Are you made to feel afraid or neglected: No Advance Directives: No Advance Directives Information Provided: No Do you have thoughts of harming others: None Do you have a plan to hurt others: No Plan Recently lost weight without trying: No Eating poorly because of decreased appetite: No Nutrition Risks: No Nutritional Risk Poor oral hygiene: No Meds Allergies Allergy/AdvReac Type Severity Reaction Status Date / Time No Known Allergies Allergy Unverified 12/16/19 19:38 [No Known Allergies*] Physical Exam Vital Signs: Vital Signs: Last Vital Signs Temp 97 F 12/02/22 07:05 Pulse 79 12/02/22 07:05 Resp 17 12/02/22 07:05 BP 141/82 H 12/02/22 07:05 Pulse Ox 96 12/02/22 07:05 O2 Del Method Room Air 12/02/22 07:05 BMI result Body Mass Index 22.9 Extrem: Other: Right LF insensate past PIP. Loss of tip skin and purulent discharge. Results Labs 12/02/22 05:00 12/02/22 05:00 Labs: Abnormal lab results 12/02/22 12/02/22 12/02/22 Range/Units 03:29 03:29 05:00 RBC 4.31 L 4.45 L (4.60-5.80) X10*6/uL Hgb 13.2 L 13.7 L (14.0-18.0) g/dl Hct 39.3 L 40.7 L (42.0-52.0) % Plt Count 484 H (160-400) X10*3/uL MPV 8.8 L 8.8 L (9.4-12.4) fL Carbon Dioxide 31 H (22-29) mmol/L Anion Gap 11 L (12-20) C-Reactive Protein 0.83 H (< or = 0.50) mg/dL 12/02/22 Range/Units 05:00 RBC (4.60-5.80) X10*6/uL Hgb (14.0-18.0) g/dl Hct (42.0-52.0) % Plt Count (160-400) X10*3/uL MPV (9.4-12.4) fL Carbon Dioxide (22-29) mmol/L Anion Gap 11 L (12-20) C-Reactive Protein (< or = 0.50) mg/dL H & H 12/02/22 12/02/22 Range/Units 03:29 05:00 Hgb 13.2 L 13.7 L (14.0-18.0) g/dl Hct 39.3 L 40.7 L (42.0-52.0) % All other labs normal. Diagnostic results Wrist/Hand x-ray: image reviewed (Flexion at the distal interphalangeal joint third digit. The tuft of the distal phalanx third digit is not well seen. An infectious process is a consideration.) Assessment and Plan (1) Wet gangrene: Status: Acute Plan Right LF gangrene likely involving middle phalanx. Amputation at DIP at least but patient unlikeley to be around for surgery given daily heroin use. Discussed with him. He is aware of our recommendations. Time Spent With Patient Time: Total time managing care of this patient today ____ minutes. Procedures Date of Service Date of Service: 12/02/22
== END 2022-12-02 12:20 | disposition left against medical advice (07) | DRG 300 ==
LOC: HO.ED 03:00 → HO.EDOVER 04:44 → HO.S3 04:59
PROVIDERS: Admitting Provider Student in an Organized Health Care Education/Training Program; Emergency Provider Student in an Organized Health Care Education/Training Program; PCP Internal Medicine; Visit Provider Internal Medicine
DX: I96 Gangrene, not elsewhere classified (principal); F11.20 Opioid dependence, uncomplicated; L03.011 Cellulitis of right finger; F17.210 Nicotine dependence, cigarettes, uncomplicated; Z71.6 Tobacco abuse counseling; F19.10 Other psychoactive substance abuse, uncomplicated
CPT/HCPCS: 36415; 73140; 80048; 80053; 83605; 85025; 86140; 87040; 93005; 99285; J0696; J2543; J3370

== ENCOUNTER → 2022-12-02 02:59 | Outpatient (BNV) | payer SELFPAY | PROVIDERS: Emergency Provider Student in an Organized Health Care Education/Training Program; PCP Internal Medicine; Visit Provider Student in an Organized Health Care Education/Training Program | DX: I96 Gangrene, not elsewhere classified (principal); L03.011 Cellulitis of right finger; Z53.29 Procedure and treatment not carried out because of patient's decision for other reasons | CPT/HCPCS: 99236; 99499 ==

== ENCOUNTER → 2022-12-02 03:12 | Outpatient (BNV) | payer SELFPAY | PROVIDERS: Admitting Provider Student in an Organized Health Care Education/Training Program; Emergency Provider Student in an Organized Health Care Education/Training Program; PCP Internal Medicine; Visit Provider Orthopaedic Surgery | DX: I96 Gangrene, not elsewhere classified (principal) | CPT/HCPCS: 99231 ==

== ENCOUNTER → 2022-12-02 03:12 | Outpatient (BNV) | payer MEDICAID, SELFPAY | PROVIDERS: Admitting Provider Student in an Organized Health Care Education/Training Program; Emergency Provider Student in an Organized Health Care Education/Training Program; PCP Internal Medicine; Visit Provider Nurse Practitioner Psychiatric/Mental Health | DX: L03.90 Cellulitis, unspecified (principal) | CPT/HCPCS: 99231 ==

== ENCOUNTER 2022-12-04 14:39 | Inpatient (IN) | payer MEDICAID, SELFPAY ==
[2022-12-04 14:47] VITALS: BP 122/78; PULSE 118; O2SAT 96
--- NOTE | 2022-12-04 14:47 | ED.SKABFB ---
HPI - Skin/Abscess/Foreign Bdy General Chief complaint: Extremity Problem Stated complaint: right finger infection, per ems Time Seen by Provider: 12/04/22 16:42 Source: patient and old records reviewed Mode of arrival: ambulatory Limitations: no limitations History of Present Illness HPI narrative: 52-year-old male with history of IV drug use, polysubstance use, recent visit to [facility] on December 02 for gangrenous right middle finger, left AMA, who presents back to the ER for worsening swelling and infection. he states for little over a week now he has had numbness, swelling, drainage and red and black discoloration of his right middle finger. He denies any injury. he states he was able to drain purulent material from the tip at home. He is remorseful for leaving the hospital against medical advice, promises to stay this time for surgical and medical treatment. complaint: discoloration Onset (ago): week(s) Tetanus up to date: unsure Location: R hand Severity: moderate Quality: other (numb) Pain Consistency: constant Relieving factors: none Exacerbating factors: none Context: IVDA Treatments prior to arrival: attempted to drain pus at home Related Data Home Medications Medication Instructions Recorded Confirmed No Known Home Meds 12/04/22 12/04/22 Allergies Allergy/AdvReac Type Severity Reaction Status Date / Time No Known Allergies Allergy Verified 12/04/22 14:55 [No Known Allergies*] Review of Systems Review of Systems: Yes all other systems are reviewed and are negative PMFSH Past Medical History Medical History IV drug user Polysubstance use disorder Tobacco use disorder Social History Social History Household Members: Significant Other Housing: Apartment Do you presently have visiting nurse or other home services: No Alcohol intake: current Alcohol intake frequency: a few times a month Patient Tobacco Use Status: Current everyday Tobacco user Tobacco use type: Cigarette Smoked in Last 30 Days: Yes Use of substances other than those prescribed or required for medical reasons: Yes Substance Use Type: Crack/Cocaine and Heroin Last Used Substance: Just Prior to Admission Advance Directives: No Advance Directives Information Provided: Yes Physical Exam Vital Signs: Vital Signs: Last Vital Signs Temp 99.1 F 12/04/22 14:49 Pulse 95 12/04/22 18:05 Resp 18 12/04/22 18:05 BP 134/89 12/04/22 18:05 Pulse Ox 98 12/04/22 18:05 O2 Del Method Room Air 12/04/22 18:05 BMI result Body Mass Index 21.2 Appearance: Alert. Oriented X3. No acute distress. Head: normocephalic, atraumatic. Eyes: Pupils equal, round and reactive to light. ENT: Pharynx normal. No tonsillar swelling or exudate. Neck: Normal inspection. Neck supple. CVS: Normal heart rate and rhythm. Pulses normal. Respiratory: No respiratory distress. Breath sounds normal. Abdomen: Soft and nontender. +BS x4 Skin: Skin warm and dry. Normal skin color. Normal skin turgor. No rashes. Extremities: Right middle finger is erythematous, swollen, macerated both on the dorsal and anterior aspects. Foul-smelling. There are some superficial hyperpigmented lesions on the palmar aspect of the finger without any notable drainage. There is dry eschar at the pulp consistent with dry gangrene, no drainable pus. He is able to slightly flex the finger without any pain. No tenderness to palpation of the palm. Left hand with multiple track suarez. Neuro/psych: Oriented X 3. No motor deficit. No sensory deficit. CN II-XII intact. Normal speech and cognition. Course Course Course Narrative: This is a rapid medical exam. Deferred additional HPI, ROS, PE to primary provider. 52yo male w/ history of IVDA here with complaints of right middle finger infection, seen here 12/02 and admitted but left AMA. Now returns because he wants to stay. Will obtain labs. Uses heroin/cocaine daily. VSS Medications Administered Discontinued Medications Generic Name Dose Route Start Last Admin Trade Name Freq PRN Reason Stop Dose Admin Hydromorphone HCl 1 mg 12/04/22 17:31 12/04/22 17:55 Hydromorphone Hcl 1 Mg/Ml Syringe IVPUSH 12/04/22 17:32 1 mg ONCE ONE Administration Protocol Piperacillin Sod/Tazobactam 50 mls @ 100 mls/hr 12/04/22 17:07 12/04/22 17:56 Sod 3.375 gm/ Sodium Chloride IV 12/04/22 17:36 100 mls/hr ONCE ONE Administration Sodium Chloride 1,000 mls @ 999 mls/hr 12/04/22 17:45 12/04/22 18:03 Ns IVCONT 12/04/22 18:45 999 mls/hr .Q1H1M GO Administration Medical Decision Making Medical Decision Making [facility] Narrative: 52 yo male with history IVDA last use was earlier today, recently seen here for cellulitis and wet gangrene of the right middle finger presents back to the ER after leaving AMA for ongoing pain and discoloration of the finger, able to express purulent material at home. On exam the finger is significantly swollen, erythematous with gangrenous changes distally. he is able to flex it somewhat, however limited by swelling. He reports numbness. Lab workup today shows no leukocytosis. He has no fever. Does not appear to be septic at this time. Orthopedics has been contacted. Case will be discussed with Dr. Vasquez. IV antibiotics have been started for broad coverage. Will plan to admit to Medicine with ortho consult. Patient agrees to stay in the hospital and get any recommended medical or surgical treatment. Differential Diagnosis Differential Diagnoses: The differential diagnosis associated with the presentation includes dry gangrene, wet gangrene, cellulitis, abscess, tenosynovitis Admission/Observation Consideration of admission/observation: Escalation of care including admission/observation considered Consult Healthcare Provider Management of the patient was discussed with: Hospitalist and Print Line Tailer Violeta - Orthopedics Hospitalist aware and came to admit the patient Lab Data [facility] Lab Attestation statement: I reviewed the patient's lab results. No leukocytosis, mild elevation of lactic acid 12/04/22 15:14 12/04/22 15:14 Labs: Lab Results 12/04/22 12/04/22 12/04/22 Range/Units 15:14 17:36 17:36 WBC 9.5 (4.8-10.8) X10*3/uL RBC 4.39 L (4.60-5.80) X10*6/uL Hgb 13.3 L (14.0-18.0) g/dl Hct 40.0 L (42.0-52.0) % MCV 91.1 (80.0-98.0) fL MCH 30.3 (27.0-33.0) pg MCHC 33.3 (31.0-36.0) g/dl RDW 13.0 (11.0-16.0) % Plt Count 492 H D (160-400) X10*3/uL MPV 8.6 L (9.4-12.4) fL Immature Gran % (Auto) 0.3 (0.0-0.4) % Neut % (Auto) 73.7 H (45-73) % Lymph % (Auto) 18.9 L (20-40) % [place] % (Auto) 5.6 (2-11) % Eos % (Auto) 1.2 (0-4) % Baso % (Auto) 0.3 (0-2) % Lymph # (Auto) 1.8 (1.2-4.9) X10*3/uL [place] # (Auto) 0.5 (0.1-1.2) X10*3/uL Eos # (Auto) 0.1 (0.0-0.4) X10*3/uL Baso # (Auto) 0.0 (0.0-0.2) X10*3/uL Abs Immat Gran (auto) 0.03 (0.00-0.03) X10*3/uL Absolute Neuts (auto) 7.0 (2.0-8.3) x10*3/uL Absolute Nucleated RBC 0.000 (0.0-0.012) X10*3/uL Nucleated RBC % (auto) 0.0 (0.0-0.2) /100WBC Sodium 142 (135-145) mmol/L Potassium 3.7 (3.3-5.1) mmol/L Chloride 107 (96-108) mmol/L Carbon Dioxide 23 (22-29) mmol/L Anion Gap 16 (12-20) BUN 15 (9-16) mg/dL Creatinine 0.96 (0.5-1.4) mg/dL Estim Creat Clear Calc 84.6 Estimated GFR > 60 Random Glucose 102 (60-115) mg/dL Lactic Acid 2.3 H* (0.5-2.0) mmol/L Calcium 9.7 D (8.4-10.2) mg/dL Total Bilirubin 0.1 (0.0-1.0) mg/dL Direct Bilirubin < 0.2 (0.0-0.5) mg/dL AST 12 (5-37) U/L ALT 9 (0-40) U/L Alkaline Phosphatase 82 (39-117) U/L Total Protein 7.9 (6.5-8.0) g/dL Albumin 4.0 (3.5-5.0) g/dL External Record Review External record reviewed: Inpatient record, Outpatient record, Prior outpatient labs and Prior outpatient radiology Tests considered The following testing was considered but not selected: considered CT scan of the hand to assess for abscess Prescription Management I considered prescription management with: Pain Medication and Antibiotic Chronic Conditions Patient?s care impacted by: Other ( intravenous drug use) Social Determinants Patient?s care significantly limited by Social Determinants of Health including: Problems related to primary support group and Other Social Determinant of Health Procedures EJ/Peripheral Line Neck L: Time Out Performed: No Skin Cleansed in Sterile Fashion: Yes Size (gauge): 20 IV Secured and Dressing Applied: Yes Patient Tolerated Procedure: well Critical Care Time Critical Care Time Critical Care Time: Yes Total Critical Care Time: 36 Attestation: I have personally provided critical care time exclusive of time spent on separately billable procedures. Time includes review of lab data, radiology results, discussion with consultants, and monitoring for potential decompensation. Intervention performed as documented. Discharge Plan Discharge Clinical Impression: Wet gangrene, Cellulitis, IV drug user Patient Disposition: Admitted As Inpatient
[2022-12-04 14:49] VITALS: BP 100/63; PULSE 109; RESP 16; TEMP 37.3; O2SAT 94; BMI 21.2
[2022-12-04 15:54] LABS: Alanine Aminotransferase 9 U/L (0-40); Alkaline Phosphatase 82 U/L (39-117); Anion Gap 16 (12-20); Aspartate Amino Transferase 12 U/L (5-37); Bilirubin Direct < 0.2 mg/dL (0.0-0.5); Bilirubin Total 0.1 mg/dL (0.0-1.0); Blood Urea Nitrogen 15 mg/dL (9-16); Calcium 9.7 mg/dL (8.4-10.2); Carbon Dioxide 23 mmol/L (22-29); Chloride 107 mmol/L (96-108); Creatinine Clr Calc Pharmacy 84.6; Estimated Glomerular Filt Rate > 60; Glucose Random 102 mg/dL (60-115); Potassium 3.7 mmol/L (3.3-5.1); Sodium 142 mmol/L (135-145); Total Protein 7.9 g/dL (6.5-8.0)
[2022-12-04 17:53] LABS: Basophils Percent Auto 0.3 % (0-2); Eosinophils Absolute Auto 0.1 X10*3/uL (0.0-0.4); Eosinophils Percent Auto 1.2 % (0-4); Hemoglobin 13.3 g/dl (14.0-18.0); Imm Gran Abs Auto 0.03 X10*3/uL (0.00-0.03); Imm Gran Pct Auto 0.3 % (0.0-0.4); Lymphocytes Absolute Auto 1.8 X10*3/uL (1.2-4.9); Lymphocytes Percent Auto 18.9 % (20-40); Mean Corpuscular HGB Conc 33.3 g/dl (31.0-36.0); Mean Corpuscular Hemoglobin 30.3 pg (27.0-33.0); Mean Corpuscular Volume 91.1 fL (80.0-98.0); Mean Platelet Volume 8.6 fL (9.4-12.4); Monocytes Absolute Auto 0.5 X10*3/uL (0.1-1.2); Monocytes Percent Auto 5.6 % (2-11); Neutrophils Percent Auto 73.7 % (45-73); Platelet Count 492 X10*3/uL (160-400); Red Blood Count 4.39 X10*6/uL (4.60-5.80); White Blood Count 9.5 X10*3/uL (4.8-10.8)
[2022-12-04 17:55] LABS: MANUAL DIFF FLAG NO
[2022-12-04] MEDS: HYDROmorphone HCl 1 MG/ML SYRINGE IVPUSH (17:55)
[2022-12-04] MEDS: Piperacillin Sodium/Tazobactam 3.375 GM in 0.9 % Sodium Chloride 50 ML IV (17:56)
[2022-12-04] MEDS: 0.9 % Sodium Chloride 1,000 ML 999 ML IVCONT (18:03)
--- NOTE | 2022-12-04 18:03 | P.HPHOSP_ITS ---
History of Present Illness Date of Service: 12/04/22 Attending physician on admission: Wojciech Ospina Chief Complaint: Right middle finger infection Pt is a 52-year-old male with a PMH significant for?daily IV heroin use otherwise no known medical conditions or home medications who presents to the ED for re-evaluation of infection of 3rd digit of right hand. Patient 1st noticed redness and swelling in his finger approximately 1 week ago. Patient states finger has been red, swollen, warm, and occasionally has had purulent drainage. Patient initially presented to the hospital 2 days ago and was seen by Orthopedics. He was admitted to the hospital and set to have his right 3rd digit amputated but patient left AMA without a reason prior to surgery. Patient re-presented to the emergency department today and states he wishes to be readmitted for resolution of his infection. Patient denies any known injury or trauma to the area. Patient admits to being a daily user of IV heroin, last used 2 bags last night, averages 1/2 a bundle a day. Patient denies injecting into his finger. Patient also admits to using cocaine, and is a daily smoker of 1/2- 1 pack of cigarettes daily. Patient denies fever, chills, nausea, vomiting. No chest pain/pressure, palpitations. Denies shortness of breath. In the ED patient was afebrile but tachycardic up to 109. Labs were significant for stable H&H of 13.3/40.0, lactic acid 2.3. Electrolytes WNL. Renal function baseline. Hepatic function baseline. CRP from 2 days prior 0.83. X-ray of right hand on 12/02/2022 showed flexion at the distal interphalangeal joint of 3rd digit with the tuft of the distal phalanx of 3rd digit not well seen. Also found bone densities along the soft tissues of the distal phalanx 3rd digit may relate to prior fracture. Pt was treated with hydromorphone, Zosyn, vancomycin, and IVF. Pt will be admitted to the hospital for right third digit cellulitis with likely necrosis. Review of Systems 2 Review of Systems: Right 3rd digit of hand swelling, erythema, warmth, purulent discharge Denies fever, chills, nausea, vomiting No chest pain/pressure , palpitations denies shortness of breath no abdominal pain Yes all other systems are reviewed and are negative PMFSH Medical History IV drug user Tobacco use disorder Polysubstance use disorder Social History Household Members: Significant Other Housing: Apartment Do you presently have visiting nurse or other home services: No Alcohol intake: current Alcohol intake frequency: a few times a month Patient Tobacco Use Status: Current everyday Tobacco user Tobacco use type: Cigarette Cigarette Packs Per Day: 0.5 Cigarettes Per Day: 10.0 Years Smoked: 30 e-Cigarette/Vaping Use: Never Used Substance Use Type: Crack/Cocaine, Heroin and Marijuana service: No Meds Allergies Allergy/AdvReac Type Severity Reaction Status Date / Time No Known Allergies Allergy Verified 12/04/22 14:55 [No Known Allergies*] Active Medications: Current Medications Vancomycin HCl 1,000 mg/Vancomycin HCl 750 mg/ Sodium Chloride 535 mls @ 267.5 mls/hr IV ONCE ONE Stop: 12/04/22 19:06 Sodium Chloride (Ns) 1,000 mls @ 999 mls/hr IVCONT .Q1H1M GO Stop: 12/04/22 18:45 Last Admin: 12/04/22 18:03 Dose: 999 mls/hr Home Medications Medication Instructions Recorded Confirmed Last Taken Type No Known Home Meds 12/04/22 12/04/22 Unknown History Physical Exam 2 Vital Signs and Narrative: Vital Signs: Last Vital Signs Temp 99.1 F 12/04/22 14:49 Pulse 109 H 12/04/22 14:49 Resp 16 12/04/22 14:49 BP 100/63 12/04/22 14:49 Pulse Ox 94 12/04/22 14:49 O2 Del Method Room Air 12/04/22 14:49 BMI result Body Mass Index 21.2 Constitutional: Alert, in no acute distress. Mental Status: Oriented to person, place and time. Eyes: Pupils are equal, round, and reactive to light. Ear, Nose, and Throat: Oropharynx clear, mucous membranes moist. Ears and nose without deformities. Trachea midline. Respiratory: Clear to auscultation bilaterally. No wheezing, rales, or rhonchi. Cardiovascular: S1, S2 regular. No murmurs, rubs, or gallops. Gastrointestinal: Abdomen soft, non-tender, non-distended. Normal bowel sounds. Neurologic: Cranial nerves II-XII are grossly intact bilaterally. No focal neurological deficits. Moves all extremities spontaneously. Skin: Multiple track suarez on upper extremities bilaterally. Musculoskeletal: No cyanosis or clubbing. Extremities: Third digit of right finger with warmth, swelling, necrosis, and sloughing of skin. See pictures below. Psychiatric: Normal mood and affect. Results Labs 12/04/22 17:36 12/06/22 08:11 Labs: Laboratory Results - last 24 hr 12/04/22 12/04/22 15:14 17:36 MCV 91.1 MCH 30.3 MCHC 33.3 RDW 13.0 Plt Count 492 H D MPV 8.6 L Immature Gran % (Auto) 0.3 Neut % (Auto) 73.7 H Lymph % (Auto) 18.9 L [place] % (Auto) 5.6 Eos % (Auto) 1.2 Baso % (Auto) 0.3 Lymph # (Auto) 1.8 [place] # (Auto) 0.5 Eos # (Auto) 0.1 Baso # (Auto) 0.0 Abs Immat Gran (auto) 0.03 Absolute Neuts (auto) 7.0 Absolute Nucleated RBC 0.000 Nucleated RBC % (auto) 0.0 Anion Gap 16 Estim Creat Clear Calc 84.6 Estimated GFR > 60 Random Glucose 102 Calcium 9.7 D Total Bilirubin 0.1 Direct Bilirubin < 0.2 AST 12 ALT 9 Alkaline Phosphatase 82 Total Protein 7.9 Albumin 4.0 Assessment and Plan (1) Cellulitis of right middle finger: Status: Acute Plan Pt is a 52-year-old male with a PMH significant for?daily IV heroin use otherwise no known medical conditions or home medications who presents to the ED for re-evaluation of infection of 3rd digit of right hand. Patient 1st noticed redness and swelling in his finger approximately 1 week ago. Of note, patient was admitted to the hospital for the same condition but left AMA before amputation of digit could be performed. Pt will be admitted to the hospital for right third digit cellulitis with likely necrosis. Cellulitis of 3rd digit of right hand with wet gangrene X-ray of right hand suggestive of bony erosion, concern for underlying osteomyelitis Empiric antibiotics: Vanc and Zosyn Pt does not meet sepsis criteria Orthopedics consult Follow blood cultures Lactic acidosis Lactic acid 2.3 Pt received IVF in ED Pt does not meet sepsis criteria Follow lactic acid Nicotine use disorder Patient smokes 1/2-1 pack a day Nicotine patch Polysubstance use disorder Addiction Team consult Monitor for withdrawal Full Code Attending:?Dr. Ospina DVT Prophylaxis: Lovenox Pt will require a hospitalization of at least two nights for treatment of?cellulitis right finger with wet gangrene with IV antibiotics and likely surgical procedure. Time Spent With Patient Time: Total time managing care of this patient today ____ minutes. Quality Stroke Does the patient have a stroke diagnosis?: No VTE Prior VTE?: No VTE Risk Level:: Medical - moderate - high VTE Device Contraindication: Treatment Not Indicated VTE Drug Contraindication: N/A - Med Ordered
[2022-12-04 18:05] VITALS: BP 134/89; PULSE 95; RESP 18; O2SAT 98
[2022-12-04 18:17] LABS: Lactic Acid 2.3 mmol/L (0.5-2.0)
--- NOTE | 2022-12-04 18:17 | PC.NURSE ---
pa inpatient at bedside to eval pt. aox4. calm, cooperative. no distress. pa state ok to eat and npo after 0001 for poss surgery tomorrow
[2022-12-04] MEDS: Nicotine 21 MG PATCH.TD24 TRANSDERMA (19:21)
[2022-12-04] MEDS: vancomycin HCL 1,000 MG, vancomycin HCL 750 MG in 0.9 % Sodium Chloride 500 ML 267.5 MG IV (19:22)
[2022-12-04] MEDS: Enoxaparin Sodium 40 MG/0.4 ML SYRINGE SUBCUT (19:22)
--- NOTE | 2022-12-04 19:30 | PC.NURSE ---
attempt x2 by two rn's - unable to access. artem craig to bedside to place L neck EJ- +blood return/flush. labs all drawn and sent including BCx2.
[2022-12-04 19:39] VITALS: BP 138/87; PULSE 88; RESP 16; TEMP 36.7; O2SAT 98
--- NOTE | 2022-12-04 19:43 | MHC.EDTECH ---
this pct assumed care of pt at 1900 ,vitals sign taken ,pt had a turkey sandwich and flaco jose armando for dinner ,belongings list done ,pt void 450 ml ,warm blanket given and pillow ,pt resting quietly in bed .
[2022-12-04 19:47] LABS: Reflex Lactate? Lactic Acid Added
--- NOTE | 2022-12-04 20:00 | MHC.EDTECH ---
Addendum entered by Neha Hassan 12/04/22 21:48: LACTIC ACID WAS DRAWN AND SENT TO LAB . Original Note: PATIENT A DIFFICULT DRAW ,UNABLE TO COLLECT REPEATED LACTIC ACID ,RN AWARE ,OTHER TECH WILL TRIED .
[2022-12-04 20:32] LABS: ~Lactic Acid-LAB USE ONLY 1.7 mmol/L (0.5-2.0)
[2022-12-04] MEDS: Morphine Sulfate 4 MG/ML CARTRIDGE IM (21:42)
[2022-12-04 23:27] VITALS: BP 151/84; PULSE 93; RESP 16; TEMP 36.8; O2SAT 98
--- NOTE | 2022-12-04 23:27 | MHC.EDTECH ---
0000 ROUNDING DONE ,VITALS SIGN TAKEN ,PT HAD 2 CANS OF SB ALKA AND 2 ORANGE JUICE FOR SNACK .
[2022-12-05] VITALS (14 sets, daily range): BP systolic 129–174; BP diastolic 80–108; PULSE 72–105; RESP 14–20; TEMP 36.1–36.8; O2SAT 95–99
--- NOTE | 2022-12-05 | ECG_ITS ---
Test Reason : pre op Blood Pressure : / mmHG Vent. Rate : 079 BPM Atrial Rate : 079 BPM P-R Int : 160 ms QRS Dur : 084 ms QT Int : 402 ms P-R-T Axes : 068 085 074 degrees QTc Int : 460 ms Normal sinus rhythm Normal ECG When compared with ECG of 02-DEC-2022 02:47, No significant change was found Referred By: Ciarra Umaña Electronically Signed By:TRAE KAY
[2022-12-05] MEDS: Piperacillin Sodium/Tazobactam 3.375 GM in 0.9 % Sodium Chloride 50 ML IV ×4 (00:44→18:17)
[2022-12-05] MEDS: 0.9 % Sodium Chloride Flush 3 ML SYRINGE IVFLUSH (00:45)
[2022-12-05] MEDS: Morphine Sulfate 4 MG/ML CARTRIDGE IM (00:45)
--- NOTE | 2022-12-05 03:58 | PC.NURSE ---
This database report writer assumed care of this Pt at 0300. Pt A&Ox4, laying on stretcher, appears to be sleeping, awakens with verbal command, reports 8/10 constant right hand middle finger pain. Finger is Swollen, hot to touch, tip of finger necrotic. VSS.
[2022-12-05] MEDS: vancomycin HCL 1,000 MG in 0.9 % Sodium Chloride 250 ML 270 MG IV ×2 (08:20→20:16)
[2022-12-05] MEDS: Nicotine 21 MG PATCH.TD24 TRANSDERMA (08:21)
--- NOTE | 2022-12-05 08:57 | HO.ADDICTPRO ---
Subjective Subjective Date of Service: 12/05/22 Reason For Visit: right finger infection Interim History: Patient with OUD currently medically admitted with cellulitis of the finger. Patient was admitted earlier this week, during that time he was seen by this race and sports book writer to assess for substance use and if appropriate treat withdrawal. Shortly after seeing this race and sports book writer patient left against medical advice. Today he is seen in ED room 11, he is laying in bed, under the covers curled up. He reports restlessness, body aches, anxiety, body aches, and appears overall uncomfortable. He reports that he was recently on methadone at clinic in [place] and his dose was 64mg. Last use was reported as being 2 days ago approx a bundle of heroin/fentanyl IV and cocaine. RN to follow up and obtain more complete MICHAEL and treatment history once patient's withdrawal sx are better managed Review of Systems Constitutional: Reports as per HPI Mental Status Exam Mental Status Exam Level of Consciousness: Awake, Appropriate and Alert Patient Behavior: Appropriate and Guarded Affect Description: Anxious Diagnostics Vital Signs (24Hr): Vital Signs - 24 hr 12/04/22 14:49 12/04/22 18:05 12/04/22 19:39 Temperature 99.1 F 98.0 F Pulse Rate 109 H 95 88 Respiratory Rate 16 18 16 Blood Pressure 100/63 134/89 138/87 Pulse Oximetry 94 98 98 Oxygen Delivery Method Room Air Room Air Room Air 12/04/22 23:27 12/05/22 03:34 12/05/22 07:33 Temperature 98.2 F 98.2 F Pulse Rate 93 92 80 Respiratory Rate 16 18 14 Blood Pressure 151/84 H 129/80 158/95 H Pulse Oximetry 98 98 97 Oxygen Delivery Method Room Air Room Air Room Air BMI result Body Mass Index 21.2 Labs 12/04/22 17:36 12/04/22 15:14 Labs: Laboratory Results - last 48 hr 12/04/22 12/04/22 12/04/22 15:14 17:36 20:13 WBC 9.5 RBC 4.39 L Hgb 13.3 L Hct 40.0 L MCV 91.1 MCH 30.3 MCHC 33.3 RDW 13.0 Plt Count 492 H D MPV 8.6 L Immature Gran % (Auto) 0.3 Neut % (Auto) 73.7 H Lymph % (Auto) 18.9 L [place] % (Auto) 5.6 Eos % (Auto) 1.2 Baso % (Auto) 0.3 Lymph # (Auto) 1.8 [place] # (Auto) 0.5 Eos # (Auto) 0.1 Baso # (Auto) 0.0 Abs Immat Gran (auto) 0.03 Absolute Neuts (auto) 7.0 Absolute Nucleated RBC 0.000 Nucleated RBC % (auto) 0.0 Sodium 142 Potassium 3.7 Chloride 107 Carbon Dioxide 23 Anion Gap 16 BUN 15 Creatinine 0.96 Estim Creat Clear Calc 84.6 Estimated GFR > 60 Random Glucose 102 Lactic Acid 2.3 H* Lactic Acid F/U @ 2Hr 1.7 Calcium 9.7 D Total Bilirubin 0.1 Direct Bilirubin < 0.2 AST 12 ALT 9 Alkaline Phosphatase 82 Total Protein 7.9 Albumin 4.0 Medications Medications Current Medications Acetaminophen (Acetaminophen 325 Mg Tablet) 650 mg PO Q6H PRN PRN Reason: Pain, Mild (Pain Scale 1-3) Docusate Sodium (Docusate Sodium 100 Mg Capsule) 100 mg PO DAILY PRN PRN Reason: Constipation Enoxaparin Sodium (Enoxaparin Sodium 40 Mg/0.4 Ml Syringe) 40 mg SUBCUT Q24H [facility] Last Admin: 12/04/22 19:22 Dose: 40 mg Piperacillin Sod/Tazobactam (Sod 3.375 gm/ Sodium Chloride) 50 mls @ 100 mls/hr IV Q6H [facility] Last Infusion: 12/05/22 07:30 Dose: Infused Vancomycin HCl 1,000 mg/ (Sodium Chloride) 270 mls @ 270 mls/hr IV Q12H [facility] Last Admin: 12/05/22 08:20 Dose: 270 mls/hr Lactated Ringer's (Lr) 1,000 mls @ 100 mls/hr IVCONT .Q10H [facility] Methadone HCl (Methadone Hcl 20 Mg/2 Ml Oral.Conc) 30 mg PO DAILY [facility] Morphine Sulfate (Morphine Sulfate 4 Mg/Ml Cartridge) 4 mg IM Q3H PRN; Protocol PRN Reason: Pain, Severe (Pain Scale 7-10) Last Admin: 12/05/22 00:45 Dose: 4 mg Nicotine (Nicotine 21 Mg Patch.Td24) 21 mg TRANSDERMA DAILY [facility] Last Admin: 12/05/22 08:21 Dose: 21 mg Ondansetron HCl (Ondansetron Hcl 4 Mg/2 Ml Vial) 4 mg IVPUSH Q8H PRN PRN Reason: Nausea and Vomiting Pharmacy Consult (Consult Rx Vancomycin Dosing) 1 each MISCELLANE DAILY PRN PRN Reason: Consult order Sodium Chloride (0.9 % Sodium Chloride Flush 3 Ml Syringe) 3 ml IVFLUSH QSHIFT [facility] Last Admin: 12/05/22 08:20 Dose: Not Given Allergies Allergies Allergy/AdvReac Type Severity Reaction Status Date / Time No Known Allergies Allergy Verified 12/04/22 14:55 [No Known Allergies*] Assessment & Plan Assessment & Plan (1) Opioid use disorder: Status: Acute Code(s): F11.90 - Opioid use, unspecified, uncomplicated Assessment and Plan: methadone 30mg now propeller inspector to follow up and obtain additional history and patient to sign ROX[facility]NE for OTP in [place] UDS ordered Hepatitis and HIV labs should be ordered based on risk factors. Total time managing care of this patient today _15___ minutes.
[2022-12-05 09:55] LABS: Creatinine Clr Calc Pharmacy 101.5; Estimated Glomerular Filt Rate > 60
[2022-12-05] MEDS: methADONE HCl 20 MG/2 ML ORAL.CONC 30 MG PO (10:33)
[2022-12-05] MEDS: Lactated Ringers 1,000 ML 100 ML IVCONT ×2 (10:38→18:52)
--- NOTE | 2022-12-05 11:00 | P.CONOP_ITS ---
History of Present Illness HPI Consult date: 12/05/22 Chief complaint: right finger infection Narrative: the patient is a 52-year-old man who presents to the emergency department with an infected and necrotic right middle finger. He was evidently seen he here a few days ago and amputation of the digit had been offered but the patient left AMA. He complains of pain swelling and drainage from the right middle finger. He has an active heroin IV drug user. He denies injecting into the finger. [facility] Past Medical History Medical History IV drug user Polysubstance use disorder Tobacco use disorder Social History Social History Household Members: Significant Other Housing: Apartment Do you presently have visiting nurse or other home services: No Alcohol intake: current Alcohol intake frequency: a few times a month Patient Tobacco Use Status: Current everyday Tobacco user Tobacco use type: Cigarette Smoked in Last 30 Days: Yes Use of substances other than those prescribed or required for medical reasons: Yes Substance Use Type: Crack/Cocaine and Heroin Last Used Substance: Just Prior to Admission Advance Directives: No Advance Directives Information Provided: Yes Meds Allergies Allergy/AdvReac Type Severity Reaction Status Date / Time No Known Allergies Allergy Verified 12/04/22 14:55 [No Known Allergies*] Active Medications: Current Medications Acetaminophen (Acetaminophen 325 Mg Tablet) 650 mg PO Q6H PRN PRN Reason: Pain, Mild (Pain Scale 1-3) Docusate Sodium (Docusate Sodium 100 Mg Capsule) 100 mg PO DAILY PRN PRN Reason: Constipation Enoxaparin Sodium (Enoxaparin Sodium 40 Mg/0.4 Ml Syringe) 40 mg SUBCUT Q24H [facility] Last Admin: 12/04/22 19:22 Dose: 40 mg Piperacillin Sod/Tazobactam (Sod 3.375 gm/ Sodium Chloride) 50 mls @ 100 mls/hr IV Q6H GO Last Infusion: 12/05/22 07:30 Dose: Infused Vancomycin HCl 1,000 mg/ (Sodium Chloride) 270 mls @ 270 mls/hr IV Q12H OG Last Infusion: 12/05/22 09:27 Dose: Infused Lactated Ringer's (Lr) 1,000 mls @ 100 mls/hr IVCONT .Q10H [facility] Last Admin: 12/05/22 10:38 Dose: 100 mls/hr Methadone HCl (Methadone Hcl 20 Mg/2 Ml Oral.Conc) 30 mg PO DAILY [facility] Last Admin: 12/05/22 10:33 Dose: 30 mg Morphine Sulfate (Morphine Sulfate 4 Mg/Ml Cartridge) 4 mg IM Q3H PRN; Protocol PRN Reason: Pain, Severe (Pain Scale 7-10) Last Admin: 12/05/22 00:45 Dose: 4 mg Nicotine (Nicotine 21 Mg Patch.Td24) 21 mg TRANSDERMA DAILY [facility] Last Admin: 12/05/22 08:21 Dose: 21 mg Ondansetron HCl (Ondansetron Hcl 4 Mg/2 Ml Vial) 4 mg IVPUSH Q8H PRN PRN Reason: Nausea and Vomiting Pharmacy Consult (Consult Rx Vancomycin Dosing) 1 each MISCELLANE DAILY PRN PRN Reason: Consult order Sodium Chloride (0.9 % Sodium Chloride Flush 3 Ml Syringe) 3 ml IVFLUSH QSHIFT [facility] Last Admin: 12/05/22 08:20 Dose: Not Given Home Medications Medication Instructions Recorded Confirmed Last Taken Type No Known Home Meds 12/04/22 12/04/22 Unknown History Physical Exam 2 Vital Signs: Vital Signs: Last Vital Signs Temp 98.3 F 12/05/22 10:32 Pulse 78 12/05/22 10:32 Resp 14 12/05/22 10:32 BP 151/99 H 12/05/22 10:32 Pulse Ox 97 12/05/22 10:32 O2 Del Method Room Air 12/05/22 10:32 BMI result Body Mass Index 21.2 Extrem: Other: He has Erythema andswelling of the right middle finger extending into the right hand. he has evidence of necrosis of the tip of the right middle finger involving most of the distal phalanx level of the digit. A small amount of purulent drainage. The digit is tender to palpation. He has good active motion of the other digits. Results Labs 12/04/22 17:36 12/05/22 09:32 Labs: Abnormal lab results 12/04/22 Range/Units 17:36 RBC 4.39 L (4.60-5.80) X10*6/uL Hgb 13.3 L (14.0-18.0) g/dl Hct 40.0 L (42.0-52.0) % Plt Count 492 H D (160-400) X10*3/uL MPV 8.6 L (9.4-12.4) fL Neut % (Auto) 73.7 H (45-73) % Lymph % (Auto) 18.9 L (20-40) % Lactic Acid 2.3 H* (0.5-2.0) mmol/L H & H 12/04/22 Range/Units 17:36 Hgb 13.3 L (14.0-18.0) g/dl Hct 40.0 L (42.0-52.0) % All other labs normal. Assessment and Plan (1) Infection of right hand: Status: Acute (2) Necrosis of finger: Status: Acute Plan Assessment and plan: 1. Right middle finger and hand infection with necrosis of the tip of the digit this is from an infection that began 1-2 weeks ago per patient. He is an active IV drug user but denies injecting into the digit. The risks and benefits of operative treatment were discussed with the patient and the patient wishes to proceed with surgery. These risks include, but are not limited to risk of damage to blood vessels, nerves, tendons, infection, recurrence, incomplete relief of preoperative symptoms, persistent pain, possible need for further surgery and the risks associated with regional blocks and anesthesia. The plan is to take the patient to the operating room today for the following procedures: 1. right index finger and hand infection I&D 2. right index finger partial amputation he has been admitted to the hospitalist service. He will need to remain on IV antibiotics through the weekend as we try to get control of this hand infection. I anticipate taking him back to the operating room on Friday for repeat I and D and hopeful closure of the amputation site. Time Spent With Patient Time: Total time managing care of this patient today ____ minutes. Procedures Date of Service Date of Service: 12/05/22
--- NOTE | 2022-12-05 11:38 | PC.NURSE ---
PT AMBULATORY IN ED WITHOUT DIFFICULTY. HE IS AWAITING ROOM ASSIGNMENT, HE REMAINS NPO
--- NOTE | 2022-12-05 11:44 | MHC.CM.PN ---
CM ATTEMPTED TO MEET WITH PT IN ED11 PT SLEEPING, DOES NOT RESPOND TO VERBAL STIMULI CM WILL REVISIT
--- NOTE | 2022-12-05 12:21 | PC.NURSE ---
dr. velez aware that tox. screen was not completed in ER. Okay to proceed.
--- NOTE | 2022-12-05 12:35 | PC.NURSE ---
iv fluids d/c per OR team. transferred to [facility]
[2022-12-05] MEDS: Albuterol Sulfate (0.083%) 2.5 MG/3 ML VIAL.NEB INHALE (12:39)
--- NOTE | 2022-12-05 12:41 | P.CONAN_ITS ---
HPI - Anesthesia Eval Consult details Narrative: 52-year-old male with history of IV drug use, polysubstance use, recent visit to [facility] on December 02 for gangrenous right middle finger, left AMA, who presents back to the ER for worsening sWelling PMFSH Active Problems Active Problems: All Active Problems (Updated 12/05/22 @ 11:05 by Brissa Vasquez MD) Necrosis of finger (Acute) Infection of right hand (Acute) Opioid use disorder (Acute) Cellulitis of right middle finger (Acute) Wet gangrene (Acute) Cellulitis (Acute) Polysubstance use disorder (Acute) Tobacco use disorder (Acute) IV drug user (Acute) Past Medical History Medical History IV drug user Tobacco use disorder Polysubstance use disorder Family History Family history of problems with anesthesia: No Surgical History History of Problems with Anesthesia: No Social History Social History Household Members: Significant Other Housing: Apartment Do you presently have visiting nurse or other home services: No Alcohol intake: current Alcohol intake frequency: a few times a month Patient Tobacco Use Status: Current everyday Tobacco user Tobacco use type: Cigarette Smoked in Last 30 Days: Yes Use of substances other than those prescribed or required for medical reasons: Yes Substance Use Type: Crack/Cocaine and Heroin Last Used Substance: Just Prior to Admission Advance Directives: No Advance Directives Information Provided: Yes Meds Allergies Allergy/AdvReac Type Severity Reaction Status Date / Time No Known Allergies Allergy Verified 12/04/22 14:55 [No Known Allergies*] Active Medications: Current Medications Acetaminophen (Acetaminophen 325 Mg Tablet) 650 mg PO Q6H PRN PRN Reason: Pain, Mild (Pain Scale 1-3) Docusate Sodium (Docusate Sodium 100 Mg Capsule) 100 mg PO DAILY PRN PRN Reason: Constipation Enoxaparin Sodium (Enoxaparin Sodium 40 Mg/0.4 Ml Syringe) 40 mg SUBCUT Q24H [facility] Last Admin: 12/04/22 19:22 Dose: 40 mg Piperacillin Sod/Tazobactam (Sod 3.375 gm/ Sodium Chloride) 50 mls @ 100 mls/hr IV Q6H [facility] Last Admin: 12/05/22 11:51 Dose: 100 mls/hr Vancomycin HCl 1,000 mg/ (Sodium Chloride) 270 mls @ 270 mls/hr IV Q12H [facility] Last Infusion: 12/05/22 09:27 Dose: Infused Lactated Ringer's (Lr) 1,000 mls @ 100 mls/hr IVCONT .Q10H [facility] Last Admin: 12/05/22 10:38 Dose: 100 mls/hr Methadone HCl (Methadone Hcl 20 Mg/2 Ml Oral.Conc) 30 mg PO DAILY [facility] Last Admin: 12/05/22 10:33 Dose: 30 mg Morphine Sulfate (Morphine Sulfate 4 Mg/Ml Cartridge) 4 mg IM Q3H PRN; Protocol PRN Reason: Pain, Severe (Pain Scale 7-10) Last Admin: 12/05/22 00:45 Dose: 4 mg Nicotine (Nicotine 21 Mg Patch.Td24) 21 mg TRANSDERMA DAILY [facility] Last Admin: 12/05/22 08:21 Dose: 21 mg Ondansetron HCl (Ondansetron Hcl 4 Mg/2 Ml Vial) 4 mg IVPUSH Q8H PRN PRN Reason: Nausea and Vomiting Pharmacy Consult (Consult Rx Vancomycin Dosing) 1 each MISCELLANE DAILY PRN PRN Reason: Consult order Sodium Chloride (0.9 % Sodium Chloride Flush 3 Ml Syringe) 3 ml IVFLUSH QSHIFT [facility] Last Admin: 12/05/22 08:20 Dose: Not Given Home Medications Medication Instructions Recorded Confirmed Last Taken Type No Known Home Meds 12/04/22 12/04/22 Unknown History Exam Exam Date and Time: December 05, 2022 1241 Height,Weight and Vital Signs: Height 5 ft 9 in Weight 65 kg Last Vital Signs Temp 98.3 F 12/05/22 10:32 Pulse 78 12/05/22 10:32 Resp 14 12/05/22 10:32 BP 151/99 H 12/05/22 10:32 Pulse Ox 97 12/05/22 10:32 O2 Del Method Room Air 12/05/22 10:32 Pertinent Lab Results Pertinent Lab Results: Laboratory Tests 12/04/22 12/04/22 12/04/22 15:14 17:36 20:13 WBC 9.5 RBC 4.39 L Hgb 13.3 L Hct 40.0 L MCV 91.1 MCH 30.3 MCHC 33.3 RDW 13.0 Plt Count 492 H D MPV 8.6 L Immature Gran % (Auto) 0.3 Neut % (Auto) 73.7 H Lymph % (Auto) 18.9 L [place] % (Auto) 5.6 Eos % (Auto) 1.2 Baso % (Auto) 0.3 Lymph # (Auto) 1.8 [place] # (Auto) 0.5 Eos # (Auto) 0.1 Baso # (Auto) 0.0 Abs Immat Gran (auto) 0.03 Absolute Neuts (auto) 7.0 Absolute Nucleated RBC 0.000 Nucleated RBC % (auto) 0.0 Sodium 142 Potassium 3.7 Chloride 107 Carbon Dioxide 23 Anion Gap 16 BUN 15 Creatinine 0.96 Estim Creat Clear Calc 84.6 Estimated GFR > 60 Random Glucose 102 Lactic Acid 2.3 H* Lactic Acid F/U @ 2Hr 1.7 Calcium 9.7 D Total Bilirubin 0.1 Direct Bilirubin < 0.2 AST 12 ALT 9 Alkaline Phosphatase 82 Total Protein 7.9 Albumin 4.0 12/05/22 09:32 WBC RBC Hgb Hct MCV MCH MCHC RDW Plt Count MPV Immature Gran % (Auto) Neut % (Auto) Lymph % (Auto) [place] % (Auto) Eos % (Auto) Baso % (Auto) Lymph # (Auto) [place] # (Auto) Eos # (Auto) Baso # (Auto) Abs Immat Gran (auto) Absolute Neuts (auto) Absolute Nucleated RBC Nucleated RBC % (auto) Sodium Potassium Chloride Carbon Dioxide Anion Gap BUN Creatinine 0.80 Estim Creat Clear Calc 101.5 Estimated GFR > 60 Random Glucose Lactic Acid Lactic Acid F/U @ 2Hr Calcium Total Bilirubin Direct Bilirubin AST ALT Alkaline Phosphatase Total Protein Albumin Airway Mallampati Class: II TM Dist: >3cm Neck ROM: Full Heart: tachy Lungs: cta Assessment and Plan Assessment Anesthesia Assessment: Anesthesia Plan Discussed and Chart Reviewed Final Anesthetic Review Family History of Problems with Anesthesia: No History of Problems with Anesthesia: No NPO: Yes ASA Class: III and Emergency Final Preanesthetic Review: No Changes in Pt Med Stat, Meds/Allgs Chart Reviewed, Consent Obtained/Reviewed and Anes Risks/Benef Reviewed Patient Risk: High (recent coccaine abuse) Procedure Risk: Intermediate Anesthetic Plan Anesthetic Plan: GA Disposition: Standard PACU (pre op resp treatment and ekg ordered. pt took methadone.)
--- NOTE | 2022-12-05 13:04 | MHC.SHP ---
Pre-Procedural Eval Section A Date of Service: 12/05/22 The patient is an INPATIENT: No Changes since office visit: No Cold of Flu in the past 2 weeks, No New Medical Problems, No Changes in Medication and No Patient answered all questions The History & Physical has been completed within 30 days and I have reviewed it.: Yes Section B Chief Complaint: right finger infection Allergies: Allergies Allergy/AdvReac Type Severity Reaction Status Date / Time No Known Allergies Allergy Verified 12/04/22 14:55 [No Known Allergies*] Plan I have reviewed the history and physical and performed a pertinent physical examination on my patient. No changes have occurred unless specified. Time Spent With Patient Time: Total time managing care of this patient today ____ minutes.
--- NOTE | 2022-12-05 13:04 | W.PM.OPN ---
Operative Note Operative Note Date of Service: 12/05/22 Narrative: Operative Note Narrative: Preop diagnosis: 1. right middle finger and hand infection 2. 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 Right middle finger I and D Of soft tissue, bone and D IP joint 2. Right middle finger amputation through D IP joint Surgeon: Brissa Vasquez MD Anesthesia: General Anesthesia Findings: evidence of chronic osteomyelitis in the distal phalanx with loss of the distal half of the distal phalanx. Minimal swelling along the flexor tendon sheath extending proximal to the D IP joint. There was a small open wound measuring perhaps 3-4 mm in diameter over the distal aspect of the middle phalanx. Implants: none Tourniquet time: Twenty minutes EBL: 5.0 ml Specimen: cultures were taken of the purulent material. The distal phalanx and the necrotic soft tissue that was amputated was sent to pathology. Drains: None Complications: None Disposition: Brought to the recovery room in stable condition Plan: admit back to floor for IV antibiotics on hospitalist service. dressing change in 2-3 days, and before discharge if patient is to leave AMA. Anticipate Possible return to the operating room on Friday for repeat I and D depending on success of IV antibiotics, and results of wound check if patient chooses to leave AMA, please ensure that patient is sent out on appropriate broad spectrum oral antibiotics. He should have follow-up in our office for wound check within a week of discharge. Indications: The patient is a 52 year old man with active IV drug use, and a right hand and middle finger infection that has gone on to necrosis of the distal aspect of the finger. He had been seen this weekend with plans to take him to the operating room but had left AMA , returning last night. . The risks and benefits of operative treatment, including but not limited to risk of damage to blood vessels, nerves, tendons, infection, recurrence, persistent pain or numbness, incomplete resolution of preoperative symptoms, or need for further surgery were discussed with the patient and they wished to proceed with surgery. Procedure: Once consent was obtained patient was brought back to the operating suite and placed in the operating table in a supine position. Anesthesia was administered by the anesthesia team. A tourniquet was applied to the proximal aspect of the Right upper extremity and the limb was prepped and draped in a standard surgical fashion. The limb was elevated and the tourniquet inflated to 250 mm of mercury for a total tourniquet time of Twenty minutes. The patient had evidence of necrosis of the distal aspect of his right middle finger. The skin appeared to be viable in the proximal half of the pad. I made a frog mouth circumferential incision at the level of the D IP joint dorsally and extending distally to allow preservation of the volar viable skin for tip coverage. The incision was made through the skin and down to the D IP joint dorsally, and extended distally volarly to allow for preservation of the viable volar pad.. Initially the distal phalanx was not found in the amputated part that was removed and placed on the back table. Instead, the distal phalanx was found to be contracted in a flexed position within the remaining viable volar soft tissues. He was also missing the distal half of the distal phalanx. It appears that he had some chronic osteomyelitis with loss of the distal half of the distal phalanx. The remaining distal phalanx was then sharply released using a 15. Blade and removed from the patient placed on the back table. I also obtained cultures of the purulent material. The wound was then copiously irrigated with normal saline. I used a rongeur to remove the articular surface off the distal aspect of the middle phalanx, and to smooth the edges. There was a 3-4 mm diameter wound in the distal volar aspect of the middle phalanx that communicated with the distal wound. This was all copiously irrigated normal saline. At this point I further evaluated the more proximal aspect of the middle phalanx and the cellulitic area on the dorsum of the hand. While he had some cellulitis I did not appreciate any fluctuance. On further evaluation of the flexor tendon sheath, he actually did not have significant swelling along the flexor tendon sheath , and I felt that he did not appear to have evidence of flexor tenosynovitis.. I also had seen him actively flexing and extending his finger in preop hold and therefore elected not to irrigate the flexor tendon sheath. The wound was again copiously irrigated with normal saline. As I did not see much in the way of purulence once the area of necrosis was removed, I felt it was best to close the amputation site. The tourniquet was deflated and hemostasis obtained with a brief period of local pressure . The wound was copiously irrigated with normal saline. The skin edges were reapproximated with 5-0 nylon suture. I allowed the radial and ulnar sides of the incision to be closed more loosely to allow for drainage. A digital block was performed using some 0.5% plain Marcaine for postop pain control and a sterile dressing was applied. The patient appears to have tolerated the procedure well and with no complications. All digits were well vascularized conclusion of the case.
--- NOTE | 2022-12-05 15:01 | PHA.MEDREC ---
Pharmacy Consult ? Medication Reconciliation Pharmacy has completed the medication reconciliation. Patient reported no medications Natividad JaramilloD
--- NOTE | 2022-12-05 15:26 | P.PNIM_ITS ---
Subjective Subjective Date of Service: 12/05/22 Interval History: Right middle finger infection Review of Systems Has mild pain in the finger otherwise no drainage Mild swelling and erythema like yesterday Physical Exam 2 Vital Signs: Vital Signs: Last Vital Signs Temp 97.0 F 12/05/22 14:30 Pulse 85 12/05/22 15:00 Resp 16 12/05/22 15:00 BP 174/101 H 12/05/22 15:00 Pulse Ox 95 12/05/22 15:00 O2 Del Method Room Air 12/05/22 15:00 BMI result Body Mass Index 21.2 Appearance: Alert.? Oriented X3. cvs: rrr, [id number] , no murmur res: clear to auscultation ,no rhonchii or wheezing abd: no rebound or guarding ,nt, bs present. ext pulses present , no cyanosis . right 3rd digit -seems simialr -please see pic h&P. neuro: axo3 , nonfocal. Objective Data Active Medications Acetaminophen (Acetaminophen 325 Mg Tablet) 650 mg PO Q6H PRN PRN Reason: Pain, Mild (Pain Scale 1-3) Docusate Sodium (Docusate Sodium 100 Mg Capsule) 100 mg PO DAILY PRN PRN Reason: Constipation Enoxaparin Sodium (Enoxaparin Sodium 40 Mg/0.4 Ml Syringe) 40 mg SUBCUT Q24H [facility] Last Admin: 12/04/22 19:22 Dose: 40 mg Documented By: SCOTT Hydromorphone HCl (Hydromorphone Hcl 0.5 Mg/0.5 Ml Syringe) 0.25 mg IVPUSH Q5M PRN; Protocol PRN Reason: Pain, Severe (Pain Scale 7-10) Piperacillin Sod/Tazobactam (Sod 3.375 gm/ Sodium Chloride) 50 mls @ 100 mls/hr IV Q6H [facility] Last Infusion: 12/05/22 13:49 Dose: Infused Documented By: DARIUS Vancomycin HCl 1,000 mg/ (Sodium Chloride) 270 mls @ 270 mls/hr IV Q12H [facility] Last Infusion: 12/05/22 09:27 Dose: Infused Documented By: KELVIN Lactated Ringer's (Lr) 1,000 mls @ 100 mls/hr IVCONT .Q10H [facility] Last Admin: 12/05/22 10:38 Dose: 100 mls/hr Documented By: KELVIN Methadone HCl (Methadone Hcl 20 Mg/2 Ml Oral.Conc) 30 mg PO DAILY [facility] Last Admin: 12/05/22 10:33 Dose: 30 mg Documented By: KELVIN Morphine Sulfate (Morphine Sulfate 4 Mg/Ml Cartridge) 4 mg IM Q3H PRN; Protocol PRN Reason: Pain, Severe (Pain Scale 7-10) Last Admin: 12/05/22 00:45 Dose: 4 mg Documented By: VIJAY Nicotine (Nicotine 21 Mg Patch.Td24) 21 mg TRANSDERMA DAILY [facility] Last Admin: 12/05/22 08:21 Dose: 21 mg Documented By: KELVIN Ondansetron HCl (Ondansetron Hcl 4 Mg/2 Ml Vial) 4 mg IVPUSH Q8H PRN PRN Reason: Nausea and Vomiting Ondansetron HCl (Ondansetron Hcl 4 Mg/2 Ml Vial) 4 mg IVPUSH ONCE PRN PRN Reason: Nausea and Vomiting Oxycodone HCl (Oxycodone Hcl Immed Release 5 Mg Tablet) 10 mg PO ONCE PRN PRN Reason: Pain, Severe (Pain Scale 7-10) Pharmacy Consult (Consult Rx Vancomycin Dosing) 1 each MISCELLANE DAILY PRN PRN Reason: Consult order Sodium Chloride (0.9 % Sodium Chloride Flush 3 Ml Syringe) 3 ml IVFLUSH QSHIFT [facility] Last Admin: 12/05/22 08:20 Dose: Not Given Documented By: KELVIN Non-Admin Reason: IV Running Labs 12/04/22 17:36 12/05/22 09:32 Labs: Laboratory Results - last 24 hr 12/04/22 12/04/22 12/04/22 15:14 17:36 20:13 MCV 91.1 MCH 30.3 MCHC 33.3 RDW 13.0 Plt Count 492 H D MPV 8.6 L Immature Gran % (Auto) 0.3 Neut % (Auto) 73.7 H Lymph % (Auto) 18.9 L [place] % (Auto) 5.6 Eos % (Auto) 1.2 Baso % (Auto) 0.3 Lymph # (Auto) 1.8 [place] # (Auto) 0.5 Eos # (Auto) 0.1 Baso # (Auto) 0.0 Abs Immat Gran (auto) 0.03 Absolute Neuts (auto) 7.0 Absolute Nucleated RBC 0.000 Nucleated RBC % (auto) 0.0 Anion Gap 16 Estim Creat Clear Calc 84.6 Estimated GFR > 60 Random Glucose 102 Lactic Acid 2.3 H* Lactic Acid F/U @ 2Hr 1.7 Calcium 9.7 D Total Bilirubin 0.1 Direct Bilirubin < 0.2 AST 12 ALT 9 Alkaline Phosphatase 82 Total Protein 7.9 Albumin 4.0 12/05/22 09:32 MCV MCH MCHC RDW Plt Count MPV Immature Gran % (Auto) Neut % (Auto) Lymph % (Auto) [place] % (Auto) Eos % (Auto) Baso % (Auto) Lymph # (Auto) [place] # (Auto) Eos # (Auto) Baso # (Auto) Abs Immat Gran (auto) Absolute Neuts (auto) Absolute Nucleated RBC Nucleated RBC % (auto) Anion Gap Estim Creat Clear Calc 101.5 Estimated GFR > 60 Random Glucose Lactic Acid Lactic Acid F/U @ 2Hr Calcium Total Bilirubin Direct Bilirubin AST ALT Alkaline Phosphatase Total Protein Albumin Assessment and Plan (1) Necrosis of finger: Status: Acute (2) Infection of right hand: Status: Acute Assessment and Plan: 52-year-old male with a PMH significant for?daily IV heroin use otherwise no known medical conditions or home medications who presents to the ED for re- evaluation of infection of 3rd digit of right hand. Patient 1st noticed redness and swelling in his finger approximately 1 week ago. Of note, patient was admitted to the hospital for the same condition but left AMA before amputation of digit could be performed. Pt will be admitted to the hospital for right third digit cellulitis with likely necrosis. Cellulitis of 3rd digit of right hand with wet gangrene X-ray of right hand suggestive of possible -bony erosion Pt does not meet sepsis criteria Follow blood cultures,added esr,crp Empiric antibiotics: Vanc and Zosyn vanco trough moniterin as per pharmacy Orthopedics consult-possible surgery for amp 3rd digit. acute Lactic acidosis Lactic acid 2.3 received IVF in ED lactic acidosis resolved. Pt does not meet sepsis criteria Nicotine use disorder Patient smokes 1/2-1 pack a day Nicotine patch Polysubstance use disorder Addiction Team consult Monitor for withdrawal Full Code DVT Prophylaxis: Lovenox ongoing hospitalization need: treatment of?cellulitis right finger with wet gangrene with IV antibiotics and likely surgical procedure. Time Spent With Patient Time: Total time managing care of this patient today ____ minutes. Quality Stroke Does the patient have a stroke diagnosis?: No VTE Prior VTE?: No VTE Risk Level:: Medical - moderate - high VTE Device Contraindication: Treatment Not Indicated VTE Drug Contraindication: N/A - Med Ordered
[2022-12-05] MEDS: oxyCODONE HCl Immed Release 5 MG TABLET 10 MG PO (16:30)
[2022-12-05] MEDS: HYDROmorphone HCl 0.5 MG/0.5 ML SYRINGE IVPUSH (18:10)
[2022-12-05] MEDS: Enoxaparin Sodium 40 MG/0.4 ML SYRINGE SUBCUT (18:21)
[2022-12-05] MEDS: cloNIDine HCL 0.1 MG TABLET PO (20:10)
[2022-12-05] MEDS: HYDROmorphone HCl 1 MG/ML SYRINGE IVPUSH (20:24)
[2022-12-05] MEDS: methADONE HCl 20 MG/2 ML ORAL.CONC 10 MG PO (22:04)
[2022-12-06] MEDS: Piperacillin Sodium/Tazobactam 3.375 GM in 0.9 % Sodium Chloride 50 ML IV ×4 (00:06→18:33)
[2022-12-06] MEDS: HYDROmorphone HCl 1 MG/ML SYRINGE IVPUSH ×4 (00:27→17:53)
[2022-12-06] MEDS: LORazepam 2 MG/ML VIAL 1 MG IVPUSH (00:38)
[2022-12-06 04:00] VITALS: BP 139/82; PULSE 72; RESP 20; TEMP 36.2; O2SAT 97
[2022-12-06] MEDS: Lactated Ringers 1,000 ML 100 ML IVCONT ×2 (05:46→16:58)
[2022-12-06 08:13] VITALS: BP 154/80; PULSE 74; RESP 18; TEMP 36.7; O2SAT 96
[2022-12-06 08:37] LABS: Vancomycin Trough 8.4 mcg/mL (10.0-20.0)
[2022-12-06 08:41] LABS: Creatinine Clr Calc Pharmacy 101.5; Estimated Glomerular Filt Rate > 60
[2022-12-06] MEDS: methADONE HCl 20 MG/2 ML ORAL.CONC 40 MG PO (08:55)
[2022-12-06] MEDS: cloNIDine HCL 0.1 MG TABLET PO ×3 (08:55→19:44)
[2022-12-06] MEDS: Nicotine 21 MG PATCH.TD24 TRANSDERMA (08:56)
--- NOTE | 2022-12-06 09:00 | HE.PHANOTE ---
re vanco scr is stable, but trough was subtherapuetic at 8.4. Will increase the dose to 1000mg q8h. suspected auc is 604 and a trough of 18.1 using [employer]. However, if the model is changed to flattened priors it predicts a trough around 16. Therefore, will be more agressive and monitor more frequently. Mitul
[2022-12-06] MEDS: vancomycin HCL 1,000 MG in 0.9 % Sodium Chloride 250 ML 270 MG IV ×2 (09:18→16:57)
--- NOTE | 2022-12-06 09:57 | MHC.CM.PN ---
EMR REVIEWED, PT ADMITTED W/RIGHT FINGER INFECTION, CM MET W/PT WHO REPORTS HE LIVES W/S.O. BLESSING, IS INDEP W/ALL CARE, DENIES USE OF DME OR SERVICES, PT REPORTS HE WAS AT [facility] HOWEVER WAS KICKED OUT WHEN HE LOST HIS INSURANCE, PT WOULD LIKE ASSISTANCE FROM FS TO HELP GET HIS MH REINSTATED SO HE CAN GET BACK ON METHADONE. PT WILL ALSO COMPLETE A HCP PRIOR TO DC, VERIFIED PCP Humberto SHEEHAN AT [facility]. [employer]+, [phone] GUIDE PROVIDED
--- NOTE | 2022-12-06 13:05 | MHC.RECOVRN ---
Addendum entered by Giovanna Nieves RN 12/06/22 18:05: Late entry: met with pt at 1300 today, he reported pain was not well managed at that time and was also endorsing withdrawal symptoms: Can't get comfortable , stated he felt restless, hot and cold flashes, chills. Yawning throughout assessment. Provider and pt's nurse made aware. An additional 10 mg of MTD was ordered and administered by RN. Plan to titrate dose up to 55mg tomorrow. Pt was previously going to [facility] in [place]. Call placed to clinic where they stated that he was discharged from their care 10/18/22. Pt was on 62 mg of methadone there prior to d/c. Original Note: T/w met with pt to check in on pain management and follow up on his methadone dose. Pt received 40 mg of methadone this morning, he is stating that it helped, but pain is not well managed at this time
[2022-12-06] MEDS: methADONE HCl 20 MG/2 ML ORAL.CONC 10 MG PO (13:37)
--- NOTE | 2022-12-06 14:27 | HO.POSTANES ---
Post Anesthesia Evaluation Post Anesthesia Evaluation Date of Service: 12/06/22 Vital Signs: Vital Signs Temp Pulse Resp BP Pulse Ox O2 Del Method 12/06/22 08:13 98.1 F 74 18 154/80 H 96 Room Air 12/06/22 04:00 97.1 F 72 20 139/82 97 Room Air Anesthesia: General Mental Status: Awake Pain Control: Satisfactory Nausea/Vomiting: None Hydration: Adequate Anesthesia-Related Issues: No Anes. Related Issues
--- NOTE | 2022-12-06 14:35 | P.PNIM_ITS ---
Subjective Subjective Date of Service: 12/06/22 Interval History: right middle finger infection Review of Systems s/p right index finger partial amputation. no fever or chills no nausea or vomiting Physical Exam 2 Vital Signs: Vital Signs: Last Vital Signs Temp 98.1 F 12/06/22 08:13 Pulse 74 12/06/22 08:13 Resp 18 12/06/22 08:13 BP 154/80 H 12/06/22 08:13 Pulse Ox 96 12/06/22 08:13 O2 Del Method Room Air 12/06/22 08:13 BMI result Body Mass Index 21.2 Appearance: Alert.? Oriented X3.? cvs: rrr, [id number] . res: clear to auscultation ,no rhonchii or wheezing abd: no rebound or guarding ,nt, bs present. ext pulses present , no cyanosis . neuro: axo3 , nonfocal. Objective Data Active Medications Acetaminophen (Acetaminophen 325 Mg Tablet) 650 mg PO Q6H PRN PRN Reason: Pain, Mild (Pain Scale 1-3) Clonidine HCl (Clonidine Hcl 0.1 Mg Tablet) 0.1 mg PO BID [facility]; Protocol Last Admin: 12/06/22 08:55 Dose: 0.1 mg Documented By: MATY Clonidine HCl (Clonidine Hcl 0.1 Mg Tablet) 0.1 mg PO TID PRN; Protocol PRN Reason: Opiate Withdrawal Docusate Sodium (Docusate Sodium 100 Mg Capsule) 100 mg PO DAILY PRN PRN Reason: Constipation Enoxaparin Sodium (Enoxaparin Sodium 40 Mg/0.4 Ml Syringe) 40 mg SUBCUT Q24H [facility] Last Admin: 12/05/22 18:21 Dose: 40 mg Documented By: MATY Hydromorphone HCl (Hydromorphone Hcl 0.5 Mg/0.5 Ml Syringe) 0.25 mg IVPUSH Q5M PRN; Protocol PRN Reason: Pain, Severe (Pain Scale 7-10) Hydromorphone HCl (Hydromorphone Hcl 1 Mg/Ml Syringe) 1 mg IVPUSH Q4H PRN; Protocol PRN Reason: Pain, Severe (Pain Scale 7-10) Last Admin: 12/06/22 13:02 Dose: 1 mg Documented By: MATY Piperacillin Sod/Tazobactam (Sod 3.375 gm/ Sodium Chloride) 50 mls @ 100 mls/hr IV Q6H [facility] Last Infusion: 12/06/22 12:29 Dose: Infused Documented By: MATY Lactated Ringer's (Lr) 1,000 mls @ 100 mls/hr IVCONT .Q10H [facility] Last Infusion: 12/06/22 12:29 Dose: 100 mls/hr Documented By: MATY Vancomycin HCl 1,000 mg/ (Sodium Chloride) 270 mls @ 270 mls/hr IV Q8H [facility] Last Infusion: 12/06/22 10:28 Dose: Infused Documented By: MATY Methadone HCl (Methadone Hcl 20 Mg/2 Ml Oral.Conc) 55 mg PO DAILY [facility] Nicotine (Nicotine 21 Mg Patch.Td24) 21 mg TRANSDERMA DAILY [facility] Last Admin: 12/06/22 08:56 Dose: 21 mg Documented By: MATY Ondansetron HCl (Ondansetron Hcl 4 Mg/2 Ml Vial) 4 mg IVPUSH Q8H PRN PRN Reason: Nausea and Vomiting Ondansetron HCl (Ondansetron Hcl 4 Mg/2 Ml Vial) 4 mg IVPUSH ONCE PRN PRN Reason: Nausea and Vomiting Pharmacy Consult (Consult Rx Vancomycin Dosing) 1 each MISCELLANE DAILY PRN PRN Reason: Consult order Sodium Chloride (0.9 % Sodium Chloride Flush 3 Ml Syringe) 3 ml IVFLUSH QSHIFT [facility] Last Admin: 12/06/22 09:04 Dose: Not Given Documented By: MATY Non-Admin Reason: Previously Administered Labs 12/04/22 17:36 12/06/22 08:11 Labs: Laboratory Results - last 24 hr 12/06/22 08:11 Estim Creat Clear Calc 101.5 Estimated GFR > 60 Vancomycin Trough 8.4 L Microbiology Microbiology Results: Microbiology 12/05/22 13:39 Gram Stain - Final Finger Right Middle Routine Culture - Preliminary Culture in progress. 12/04/22 17:37 Blood Culture - Preliminary Blood - Venous No growth after 24 hours. 12/04/22 15:14 Blood Culture - Preliminary Blood - Venous No growth after 24 hours. Assessment and Plan (1) Necrosis of finger: Status: Acute (2) Infection of right hand: Status: Acute (3) Cellulitis of right middle finger: Status: Acute Assessment and Plan: 52-year-old male with a PMH significant for?daily IV heroin use otherwise no known medical conditions or home medications who presents to the ED for re- evaluation of infection of 3rd digit of right hand. Patient 1st noticed redness and swelling in his finger approximately 1 week ago. Of note, patient was admitted to the hospital for the same condition but left AMA before amputation of digit could be performed. Pt will be admitted to the hospital for right third digit cellulitis with likely necrosis. Cellulitis of 3rd digit of right hand with wet gangrene X-ray of right hand suggestive of possible -bony erosion Pt does not meet sepsis criteria Follow blood cultures,added esr,crp Empiric antibiotics: Vanc and Zosyn vanco trough moniterin as per pharmacy Orthopedics consult-possible surgery for amp 3rd digit. acute Lactic acidosis Lactic acidosis resolved. received IVF in ED lactic acidosis resolved. Pt does not meet sepsis criteria Nicotine use disorder Patient smokes 1/2-1 pack a day Nicotine patch Polysubstance use disorder Addiction Team consult Monitor for withdrawal Full Code DVT Prophylaxis: Lovenox ongoing hospitalization need: treatment of?cellulitis right finger with wet gangrene with IV antibiotics and likely surgical procedure. Time Spent With Patient Time: Total time managing care of this patient today ____ minutes. Quality Stroke Does the patient have a stroke diagnosis?: No VTE Prior VTE?: No VTE Risk Level:: Medical - moderate - high VTE Device Contraindication: Treatment Not Indicated VTE Drug Contraindication: N/A - Med Ordered
[2022-12-06 15:32] VITALS: BP 152/72; PULSE 79; RESP 18; TEMP 36.1; O2SAT 96
[2022-12-06] MEDS: oxyCODONE HCl Immed Release 5 MG TABLET 10 MG PO ×2 (15:56→19:42)
[2022-12-06] MEDS: Enoxaparin Sodium 40 MG/0.4 ML SYRINGE SUBCUT (18:32)
[2022-12-06 19:12] VITALS: BP 126/80; PULSE 92; RESP 18; TEMP 36.4; O2SAT 99
[2022-12-06] MEDS: Acetaminophen 325 MG TABLET 650 MG PO (19:43)
[2022-12-06] MEDS: 0.9 % Sodium Chloride Flush 3 ML SYRINGE IVFLUSH (19:46)
--- NOTE | 2022-12-06 22:29 | W.PM.IDCN ---
History of Present Illness Data of Consult Service Date: 12/06/22 Requesting physician: Wojciech Ospina Primary Care Provider: Unknown Physician HPI Reason for consult: right third finger cellulitis/infection He presents with right third finger redness initially on 12/02 and than went AMA. He is a substance user and says injured finger. He says he was kicked out of Methadone program for no-shows. He is going on 12/09 to OR for bone removal and irrigation finger. He denies endocarditis or spine infection and has occasional back pain. Review of Systems Review of Systems: Yes all other systems are reviewed and are negative [facility], [facility] Past Medical History Medical History IV drug user Tobacco use disorder Polysubstance use disorder Family History Family history: reviewed and not pertinent Social History Social History Household Members: Significant Other Housing: Apartment Do you presently have visiting nurse or other home services: No Alcohol intake: current Alcohol intake frequency: a few times a month Patient Tobacco Use Status: Current everyday Tobacco user Tobacco use type: Cigarette Cigarette Packs Per Day: 0.5 Cigarettes Per Day: 10.0 Years Smoked: 30 e-Cigarette/Vaping Use: Never Used Substance Use Type: Crack/Cocaine, Heroin and Marijuana service: No Meds Allergies Allergy/AdvReac Type Severity Reaction Status Date / Time No Known Allergies Allergy Verified 12/04/22 14:55 [No Known Allergies*] Active Medications: Current Medications Acetaminophen (Acetaminophen 325 Mg Tablet) 650 mg PO Q6H PRN PRN Reason: Pain, Mild (Pain Scale 1-3) Last Admin: 12/06/22 19:43 Dose: 650 mg Clonidine HCl (Clonidine Hcl 0.1 Mg Tablet) 0.1 mg PO BID [facility]; Protocol Last Admin: 12/06/22 19:44 Dose: 0.1 mg Clonidine HCl (Clonidine Hcl 0.1 Mg Tablet) 0.1 mg PO TID PRN; Protocol PRN Reason: Opiate Withdrawal Last Admin: 12/06/22 15:56 Dose: 0.1 mg Docusate Sodium (Docusate Sodium 100 Mg Capsule) 100 mg PO DAILY PRN PRN Reason: Constipation Enoxaparin Sodium (Enoxaparin Sodium 40 Mg/0.4 Ml Syringe) 40 mg SUBCUT Q24H [facility] Last Admin: 12/06/22 18:32 Dose: 40 mg Hydromorphone HCl (Hydromorphone Hcl 0.5 Mg/0.5 Ml Syringe) 0.25 mg IVPUSH Q5M PRN; Protocol PRN Reason: Pain, Severe (Pain Scale 7-10) Hydromorphone HCl (Hydromorphone Hcl 1 Mg/Ml Syringe) 1 mg IVPUSH Q4H PRN; Protocol PRN Reason: Pain, Severe (Pain Scale 7-10) Last Admin: 12/06/22 17:53 Dose: 1 mg Piperacillin Sod/Tazobactam (Sod 3.375 gm/ Sodium Chloride) 50 mls @ 100 mls/hr IV Q6H [facility] Last Infusion: 12/06/22 19:24 Dose: Infused Lactated Ringer's (Lr) 1,000 mls @ 100 mls/hr IVCONT .Q10H [facility] Last Admin: 12/06/22 16:58 Dose: 100 mls/hr Vancomycin HCl 1,000 mg/ (Sodium Chloride) 270 mls @ 270 mls/hr IV Q8H [facility] Last Infusion: 12/06/22 18:26 Dose: Infused Methadone HCl (Methadone Hcl 20 Mg/2 Ml Oral.Conc) 55 mg PO DAILY [facility] Nicotine (Nicotine 21 Mg Patch.Td24) 21 mg TRANSDERMA DAILY [facility] Last Admin: 12/06/22 08:56 Dose: 21 mg Ondansetron HCl (Ondansetron Hcl 4 Mg/2 Ml Vial) 4 mg IVPUSH Q8H PRN PRN Reason: Nausea and Vomiting Ondansetron HCl (Ondansetron Hcl 4 Mg/2 Ml Vial) 4 mg IVPUSH ONCE PRN PRN Reason: Nausea and Vomiting Oxycodone HCl (Oxycodone Hcl Immed Release 5 Mg Tablet) 10 mg PO Q4H PRN PRN Reason: Pain, Mild (Pain Scale 1-3) Last Admin: 12/06/22 19:42 Dose: 10 mg Pharmacy Consult (Consult Rx Vancomycin Dosing) 1 each MISCELLANE DAILY PRN PRN Reason: Consult order Sodium Chloride (0.9 % Sodium Chloride Flush 3 Ml Syringe) 3 ml IVFLUSH QSHIFT [facility] Last Admin: 12/06/22 19:46 Dose: 3 ml Home Medications Medication Instructions Recorded Confirmed Last Taken Type No Known Home Meds 12/04/22 12/04/22 Unknown History Physical Exam Vital Signs: Vital Signs: Last Vital Signs Temp 97.6 F 12/06/22 19:12 Pulse 92 12/06/22 19:12 Resp 18 12/06/22 19:12 BP 126/80 12/06/22 19:12 Pulse Ox 99 12/06/22 19:12 O2 Del Method Room Air 12/06/22 19:12 BMI result Body Mass Index 21.2 Const: General: cooperative HEENT: Head: Yes normal to inspection Face and sinus: Yes normal facial exam Mouth: Normal oral and palatal mucosa present Teeth and gingiva: dentition normal Eyes: General: appearance normal, both eyes and all related structures Pupils: Equal, round and reactive pupils present Resp: Effort & Inspection: normal respiratory effort Cardio: Rate: regular rate Rhythm: regular rhythm GI: Palpation (GI): Soft to palpation and nontender : General: Yes no CVA tenderness Back/Spine/Pelvis: Back: no CVA tenderness Skin: General skin exam: no rashes or lesions noted Neuro: General: moves all extremities Cranial nerves: Yes Equal, round and reactive pupils present Extrem: Other: finger wrapped General: Yes normal to inspection Psych: Appearance: grossly normal Results Labs 12/04/22 17:36 12/06/22 08:11 Labs: BMP 12/06/22 08:11 Creatinine 0.80 Microbiology Microbiology Results: Microbiology 12/04/22 17:37 Blood - Venous Blood Culture - Preliminary No growth after 48 hours. 12/04/22 15:14 Blood - Venous Blood Culture - Preliminary No growth after 48 hours. 12/05/22 13:39 Finger Right Middle Gram Stain - Final 12/05/22 13:39 Finger Right Middle Routine Culture - Preliminary Culture in progress. Assessment and Plan (1) Necrosis of finger: Status: Acute (2) Infection of right hand: Status: Acute No definite organisms so far Would continue Vancomycin and Zosyn Await surgery on Friday. Check HIV and Hepatitis C. Time Spent With Patient Time: Total time managing care of this patient today ____ minutes.
[2022-12-07] MEDS: Lactated Ringers 1,000 ML 100 ML IVCONT (00:05)
[2022-12-07] MEDS: Piperacillin Sodium/Tazobactam 3.375 GM in 0.9 % Sodium Chloride 50 ML IV ×5 (00:11→23:56)
[2022-12-07] MEDS: vancomycin HCL 1,000 MG in 0.9 % Sodium Chloride 250 ML 270 MG IV ×2 (00:11→11:52)
[2022-12-07] MEDS: HYDROmorphone HCl 1 MG/ML SYRINGE IVPUSH ×5 (00:11→23:53)
[2022-12-07 07:24] VITALS: BP 135/76; PULSE 62; RESP 16; TEMP 36.2; O2SAT 97
[2022-12-07 07:51] LABS: Creatinine Clr Calc Pharmacy 96.7; Estimated Glomerular Filt Rate > 60; Vancomycin Random 19.1 mcg/mL (15-20)
[2022-12-07] MEDS: cloNIDine HCL 0.1 MG TABLET PO ×3 (08:43→19:44)
[2022-12-07] MEDS: Nicotine 21 MG PATCH.TD24 TRANSDERMA (08:43)
[2022-12-07] MEDS: methADONE HCl 20 MG/2 ML ORAL.CONC 55 MG PO (08:43)
[2022-12-07 09:32] LABS: HIV AB/AG Nonreactive (Nonreactive); HIV Num 1 0.05 S/CO (0.00-0.99)
[2022-12-07 09:52] LABS: HBS Num1 1.31 mIU/mL (0-7.99); HBc Num1 0.11 S/CO (0.00-0.79); HBsAGNum1 0.39 S/CO (0.00-0.99); Hepatitis A Antibody IgM 0.35 Index (0-0.79); Hepatitis B Core Antibody Nonreactive (Nonreactive); Hepatitis B Surface Antigen Negative (Negative); ~Hepatitis A Antibody IgM Nonreactive (Nonreactive); ~Hepatitis B Surface Antibody NONREACTIVE (Nonreactive); ~Hepatitis C Antibody Nonreactive (Nonreactive)
[2022-12-07] MEDS: HYDROmorphone HCl 0.5 MG/0.5 ML SYRINGE 0.25 MG IVPUSH (11:13)
--- NOTE | 2022-12-07 11:53 | P.PNADD_ITS ---
Subjective Subjective Date of Service: 12/07/22 Reason For Visit: right finger infection Interim History: Patient seen in follow up Current methadone dose is 55mg. He reports this dose is helpful and denies any withdrawal sx. He appears comfortable, laying in bed with his eyes closed, and answering questions appropriately. Methadone dose was verified with previous [facility], and he reports he would like to return there continuation of treatment following discharge. He would like to continue dose titration Review of Systems Constitutional: Reports as per HPI Mental Status Exam Mental Status Exam Patient Appearance: Appropriate Level of Consciousness: Awake Mood Description: Calm Affect Description: Calm Judgement: Fair Diagnostics Vital Signs (24Hr): Vital Signs - 24 hr 12/06/22 15:32 12/06/22 19:12 12/07/22 07:24 Temperature 96.9 F 97.6 F 97.2 F Pulse Rate 79 92 62 Respiratory Rate 18 18 16 Blood Pressure 152/72 H 126/80 135/76 Pulse Oximetry 96 99 97 Oxygen Delivery Method Room Air Room Air Room Air BMI result Body Mass Index 21.2 Labs 12/04/22 17:36 12/07/22 07:15 Labs: Laboratory Results - last 48 hr 12/06/22 12/06/22 12/07/22 08:11 14:09 07:15 Creatinine 0.80 0.84 Estim Creat Clear Calc 101.5 96.7 Estimated GFR > 60 > 60 Vancomycin Trough 8.4 L Random Vancomycin 19.1 Hepatitis A IgM Ab Nonreactive Hep Bs Antigen Negative Hep Bs Antibody NONREACTIVE Hep B Core Total Ab Nonreactive Hepatitis C Ab (EIA) Nonreactive HIV 1&2 Ab/P24 Ag 4thGn Nonreactive Medications Medications Current Medications Acetaminophen (Acetaminophen 325 Mg Tablet) 650 mg PO Q6H PRN PRN Reason: Pain, Mild (Pain Scale 1-3) Last Admin: 12/06/22 19:43 Dose: 650 mg Clonidine HCl (Clonidine Hcl 0.1 Mg Tablet) 0.1 mg PO BID [facility]; Protocol Last Admin: 12/07/22 08:43 Dose: 0.1 mg Clonidine HCl (Clonidine Hcl 0.1 Mg Tablet) 0.1 mg PO TID PRN; Protocol PRN Reason: Opiate Withdrawal Last Admin: 12/06/22 15:56 Dose: 0.1 mg Docusate Sodium (Docusate Sodium 100 Mg Capsule) 100 mg PO DAILY PRN PRN Reason: Constipation Enoxaparin Sodium (Enoxaparin Sodium 40 Mg/0.4 Ml Syringe) 40 mg SUBCUT Q24H [facility] Last Admin: 12/06/22 18:32 Dose: 40 mg Hydromorphone HCl (Hydromorphone Hcl 0.5 Mg/0.5 Ml Syringe) 0.25 mg IVPUSH Q5M PRN; Protocol PRN Reason: Pain, Severe (Pain Scale 7-10) Last Admin: 12/07/22 11:13 Dose: 0.25 mg Hydromorphone HCl (Hydromorphone Hcl 1 Mg/Ml Syringe) 1 mg IVPUSH Q4H PRN; Protocol PRN Reason: Pain, Severe (Pain Scale 7-10) Last Admin: 12/07/22 06:09 Dose: 1 mg Piperacillin Sod/Tazobactam (Sod 3.375 gm/ Sodium Chloride) 50 mls @ 100 mls/hr IV Q6H [facility] Last Admin: 12/07/22 11:13 Dose: 100 mls/hr Vancomycin HCl 1,000 mg/ (Sodium Chloride) 270 mls @ 270 mls/hr IV Q12H [facility] Methadone HCl (Methadone Hcl 20 Mg/2 Ml Oral.Conc) 55 mg PO DAILY [facility] Last Admin: 12/07/22 08:43 Dose: 55 mg Nicotine (Nicotine 21 Mg Patch.Td24) 21 mg TRANSDERMA DAILY [facility] Last Admin: 12/07/22 08:43 Dose: 21 mg Ondansetron HCl (Ondansetron Hcl 4 Mg/2 Ml Vial) 4 mg IVPUSH Q8H PRN PRN Reason: Nausea and Vomiting Ondansetron HCl (Ondansetron Hcl 4 Mg/2 Ml Vial) 4 mg IVPUSH ONCE PRN PRN Reason: Nausea and Vomiting Oxycodone HCl (Oxycodone Hcl Immed Release 5 Mg Tablet) 10 mg PO Q4H PRN PRN Reason: Pain, Mild (Pain Scale 1-3) Last Admin: 12/06/22 19:42 Dose: 10 mg Pharmacy Consult (Consult Rx Vancomycin Dosing) 1 each MISCELLANE DAILY PRN PRN Reason: Consult order Sodium Chloride (0.9 % Sodium Chloride Flush 3 Ml Syringe) 3 ml IVFLUSH QSHIFT [facility] Last Admin: 12/07/22 07:01 Dose: Not Given Allergies Allergies Allergy/AdvReac Type Severity Reaction Status Date / Time No Known Allergies Allergy Verified 12/04/22 14:55 [No Known Allergies*] Assessment & Plan Assessment & Plan (1) Opioid use disorder: Status: Acute Code(s): F11.90 - Opioid use, unspecified, uncomplicated Assessment and Plan: * increase dose to 60mg Friday morning * will continue to follow * 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
--- NOTE | 2022-12-07 14:37 | PM.PNORT ---
Subjective Subjective Date of Service: 12/07/22 Interval history: POD2 s/p 1. Right middle finger I and D Of soft tissue, bone and DIP joint. 2. Right middle finger amputation through DIP joint. Patient is resting in bed comfortably. No overnight events. Pain is well managed. No additional complaints. Physical Exam Vital Signs: Vital Signs: Last Vital Signs Temp 97.2 F 12/07/22 07:24 Pulse 62 12/07/22 07:24 Resp 16 12/07/22 07:24 BP 135/76 12/07/22 07:24 Pulse Ox 97 12/07/22 07:24 O2 Del Method Room Air 12/07/22 07:24 BMI result Body Mass Index 21.2 Const: General: cooperative, healthy appearing and no acute distress Resp: Effort & Inspection: normal respiratory effort and able to speak in complete sentences Cardio: Rate: regular rate Peripheral pulses: Peripheral pulses 2+ throughout GI: Palpation (GI): Soft to palpation Skin: Lesions: no lesions Rashes: no rashes Extrem: Other: Right middle finger bandages are c/d/i. Procedures Date of Service Date of Service: 12/07/22 Progress Note: A&P Assessment and plan (1) Necrosis of finger: Status: Acute Assessment and Plan: Keep dressing c/d/i Dressing may be changed tomorrow Pain management as appropriate Reevaluate tomorrow for possibility of second I&D Friday (2) Infection of right hand: Status: Acute (3) Opioid use disorder: Status: Acute (4) Cellulitis of right middle finger: Status: Acute (5) Wet gangrene: Status: Acute (6) Cellulitis: Status: Acute (7) Polysubstance use disorder: Status: Acute (8) Tobacco use disorder: Status: Acute (9) IV drug user: Status: Acute Time Spent With Patient Time: Total time managing care of this patient today ____ minutes. Quality Stroke Does the patient have a stroke diagnosis?: No VTE Prior VTE?: No VTE Risk Level:: Medical - moderate - high VTE Device Contraindication: Treatment Not Indicated VTE Drug Contraindication: N/A - Med Ordered
[2022-12-07 15:03] VITALS: BP 144/87; PULSE 65; RESP 18; TEMP 37.3; O2SAT 100
--- NOTE | 2022-12-07 15:25 | HO.PM.IMPN ---
Subjective Subjective Date of Service: 12/07/22 Interval History: right middle finger infection Review of Systems s/p right index finger partial amputation. no fever or chills no nausea or vomiting Physical Exam Vital Signs: Vital Signs: Last Vital Signs Temp 99.2 F 12/07/22 15:03 Pulse 65 12/07/22 15:03 Resp 18 12/07/22 15:03 BP 144/87 H 12/07/22 15:03 Pulse Ox 100 12/07/22 15:03 O2 Del Method Room Air 12/07/22 15:03 BMI result Body Mass Index 21.2 Appearance: Alert.? Oriented X3.? cvs: rrr, [id number] . res: clear to auscultation ,no rhonchii or wheezing abd: no rebound or guarding ,nt, bs present. ext pulses present , no cyanosis . neuro: axo3 , nonfocal. Objective Data Active Medications Acetaminophen (Acetaminophen 325 Mg Tablet) 650 mg PO Q6H PRN PRN Reason: Pain, Mild (Pain Scale 1-3) Last Admin: 12/06/22 19:43 Dose: 650 mg Documented By: CONSUELO Clonidine HCl (Clonidine Hcl 0.1 Mg Tablet) 0.1 mg PO BID GO; Protocol Last Admin: 12/07/22 08:43 Dose: 0.1 mg Documented By: FOZIA Clonidine HCl (Clonidine Hcl 0.1 Mg Tablet) 0.1 mg PO TID PRN; Protocol PRN Reason: Opiate Withdrawal Last Admin: 12/06/22 15:56 Dose: 0.1 mg Documented By: MATY Docusate Sodium (Docusate Sodium 100 Mg Capsule) 100 mg PO DAILY PRN PRN Reason: Constipation Enoxaparin Sodium (Enoxaparin Sodium 40 Mg/0.4 Ml Syringe) 40 mg SUBCUT Q24H GO Last Admin: 12/06/22 18:32 Dose: 40 mg Documented By: MATY Hydromorphone HCl (Hydromorphone Hcl 0.5 Mg/0.5 Ml Syringe) 0.25 mg IVPUSH Q5M PRN; Protocol PRN Reason: Pain, Severe (Pain Scale 7-10) Last Admin: 12/07/22 11:13 Dose: 0.25 mg Documented By: FOZIA Hydromorphone HCl (Hydromorphone Hcl 1 Mg/Ml Syringe) 1 mg IVPUSH Q4H PRN; Protocol PRN Reason: Pain, Severe (Pain Scale 7-10) Last Admin: 12/07/22 15:24 Dose: 1 mg Documented By: FOZIA Piperacillin Sod/Tazobactam (Sod 3.375 gm/ Sodium Chloride) 50 mls @ 100 mls/hr IV Q6H [facility] Last Infusion: 12/07/22 11:57 Dose: Infused Documented By: OFZIA Vancomycin HCl 1,000 mg/ (Sodium Chloride) 270 mls @ 270 mls/hr IV Q12H [facility] Last Infusion: 12/07/22 13:08 Dose: Infused Documented By: FOZIA Methadone HCl (Methadone Hcl 20 Mg/2 Ml Oral.Conc) 55 mg PO DAILY [facility] Last Admin: 12/07/22 08:43 Dose: 55 mg Documented By: FOZIA Nicotine (Nicotine 21 Mg Patch.Td24) 21 mg TRANSDERMA DAILY [facility] Last Admin: 12/07/22 08:43 Dose: 21 mg Documented By: FOZIA Ondansetron HCl (Ondansetron Hcl 4 Mg/2 Ml Vial) 4 mg IVPUSH Q8H PRN PRN Reason: Nausea and Vomiting Ondansetron HCl (Ondansetron Hcl 4 Mg/2 Ml Vial) 4 mg IVPUSH ONCE PRN PRN Reason: Nausea and Vomiting Oxycodone HCl (Oxycodone Hcl Immed Release 5 Mg Tablet) 10 mg PO Q4H PRN PRN Reason: Pain, Mild (Pain Scale 1-3) Last Admin: 12/06/22 19:42 Dose: 10 mg Documented By: CONSUELO Pharmacy Consult (Consult Rx Vancomycin Dosing) 1 each MISCELLANE DAILY PRN PRN Reason: Consult order Sodium Chloride (0.9 % Sodium Chloride Flush 3 Ml Syringe) 3 ml IVFLUSH QSHIFT [facility] Last Admin: 12/07/22 15:07 Dose: Not Given Documented By: FOZIA Non-Admin Reason: IV Running Labs 12/04/22 17:36 12/07/22 07:15 Labs: Laboratory Results - last 24 hr 12/06/22 12/07/22 14:09 07:15 Estim Creat Clear Calc 96.7 Estimated GFR > 60 Random Vancomycin 19.1 Hepatitis A IgM Ab Nonreactive Hep Bs Antigen Negative Hep Bs Antibody NONREACTIVE Hep B Core Total Ab Nonreactive Hepatitis C Ab (EIA) Nonreactive HIV 1&2 Ab/P24 Ag 4thGn Nonreactive Microbiology Microbiology Results: Microbiology 12/05/22 13:39 Gram Stain - Final Finger Right Middle Routine Culture - Preliminary Staphylococcus aureus 12/04/22 17:37 Blood Culture - Preliminary Blood - Venous No growth after 48 hours. 12/04/22 15:14 Blood Culture - Preliminary Blood - Venous No growth after 48 hours. Assessment and Plan (1) Infection of right hand: Status: Acute (2) Cellulitis of right middle finger: Status: Acute (3) Necrosis of finger: Status: Acute Plan 52-year-old male with a PMH significant for?daily IV heroin use otherwise no known medical conditions or home medications who presents to the ED for re-evaluation of infection of 3rd digit of right hand. Patient 1st noticed redness and swelling in his finger approximately 1 week ago. Of note, patient was admitted to the hospital for the same condition but left AMA before amputation of digit could be performed. Pt will be admitted to the hospital for right third digit cellulitis with likely necrosis. Cellulitis of 3rd digit of right hand with wet gangrene X-ray of right hand suggestive of possible -bony erosion Pt does not meet sepsis criteria Follow blood cultures,added esr,crp Empiric antibiotics: Vanc and Zosyn(12/04/22) vanco trough moniterin as per pharmacy Orthopedics consult-possible surgery for amp 3rd digit. acute Lactic acidosis Lactic acidosis resolved. received IVF in ED lactic acidosis resolved. Pt does not meet sepsis criteria Nicotine use disorder Patient smokes 1/2-1 pack a day Nicotine patch Polysubstance use disorder Addiction Team consult Monitor for withdrawal Full Code DVT Prophylaxis: Lovenox ongoing hospitalization need: treatment of?cellulitis right finger with wet gangrene with IV antibiotics and likely surgical procedure. Time Spent With Patient Time: Total time managing care of this patient today ____ minutes. Quality Stroke Does the patient have a stroke diagnosis?: No VTE Prior VTE?: No VTE Risk Level:: Medical - moderate - high VTE Device Contraindication: Treatment Not Indicated VTE Drug Contraindication: N/A - Med Ordered
[2022-12-07] MEDS: Enoxaparin Sodium 40 MG/0.4 ML SYRINGE SUBCUT (17:26)
[2022-12-07] MEDS: Lactated Ringers 1,000 ML 80 ML IVCONT (18:23)
[2022-12-07 19:34] VITALS: BP 125/87; PULSE 72; RESP 17; TEMP 36.4; O2SAT 99
[2022-12-07 23:52] VITALS: BP 129/77; PULSE 66; RESP 17; TEMP 36.3; O2SAT 98
[2022-12-07] MEDS: 0.9 % Sodium Chloride Flush 3 ML SYRINGE IVFLUSH (23:58)
[2022-12-08] MEDS: vancomycin HCL 1,000 MG in 0.9 % Sodium Chloride 250 ML 270 MG IV ×2 (00:31→11:45)
[2022-12-08] MEDS: Lactated Ringers 1,000 ML 80 ML IVCONT ×2 (00:33→11:45)
[2022-12-08 05:24] VITALS: BP 138/83; PULSE 84; RESP 16
[2022-12-08] MEDS: HYDROmorphone HCl 1 MG/ML SYRINGE IVPUSH ×4 (05:29→19:36)
[2022-12-08] MEDS: Piperacillin Sodium/Tazobactam 3.375 GM in 0.9 % Sodium Chloride 50 ML IV ×4 (05:32→23:33)
[2022-12-08 06:46] LABS: Creatinine Clr Calc Pharmacy 91.2; Estimated Glomerular Filt Rate > 60
[2022-12-08 07:14] VITALS: BP 129/72; PULSE 64; RESP 18; TEMP 36.7; O2SAT 99
[2022-12-08] MEDS: Nicotine 21 MG PATCH.TD24 TRANSDERMA (08:07)
[2022-12-08] MEDS: methADONE HCl 20 MG/2 ML ORAL.CONC 55 MG PO (08:08)
[2022-12-08] MEDS: cloNIDine HCL 0.1 MG TABLET PO ×2 (08:08→20:37)
--- NOTE | 2022-12-08 10:37 | PC.NURSE ---
Pt is assessed as a moderate fall risk, refusing all high fall risk interventions.
[2022-12-08 12:06] LABS: Vancomycin Random 11.9 mcg/mL (15-20)
--- NOTE | 2022-12-08 12:20 | HE.PHANOTE ---
Vancomycin addendum: Vanco level came back at 11.9, predicted AUC of 437, will keep with current dose
--- NOTE | 2022-12-08 12:36 | HO.PM.IMPN ---
Subjective Subjective Date of Service: 12/08/22 Interval History: right middle finger infection Review of Systems Denies any nausea vomiting or diarrhea No fevers. Physical Exam Vital Signs: Vital Signs: Last Vital Signs Temp 98.0 F 12/08/22 07:14 Pulse 64 12/08/22 07:14 Resp 18 12/08/22 07:14 BP 129/72 12/08/22 07:14 Pulse Ox 99 12/08/22 07:14 O2 Del Method Room Air 12/08/22 07:14 BMI result Body Mass Index 21.2 Appearance: Alert.? Oriented X3.? cvs: rrr, [id number] . res: clear to auscultation ,no rhonchii or wheezing abd: no rebound or guarding ,nt, bs present. ext pulses present , no cyanosis . neuro: axo3 , nonfocal. Objective Data Active Medications Acetaminophen (Acetaminophen 325 Mg Tablet) 650 mg PO Q6H PRN PRN Reason: Pain, Mild (Pain Scale 1-3) Last Admin: 12/06/22 19:43 Dose: 650 mg Documented By: CONSUELO Clonidine HCl (Clonidine Hcl 0.1 Mg Tablet) 0.1 mg PO BID GO; Protocol Last Admin: 12/08/22 08:08 Dose: 0.1 mg Documented By: FOZIA Clonidine HCl (Clonidine Hcl 0.1 Mg Tablet) 0.1 mg PO TID PRN; Protocol PRN Reason: Opiate Withdrawal Last Admin: 12/07/22 19:44 Dose: 0.1 mg Documented By: CONSUELO Docusate Sodium (Docusate Sodium 100 Mg Capsule) 100 mg PO DAILY PRN PRN Reason: Constipation Enoxaparin Sodium (Enoxaparin Sodium 40 Mg/0.4 Ml Syringe) 40 mg SUBCUT Q24H GO Last Admin: 12/07/22 17:26 Dose: 40 mg Documented By: FOZIA Hydromorphone HCl (Hydromorphone Hcl 0.5 Mg/0.5 Ml Syringe) 0.25 mg IVPUSH Q5M PRN; Protocol PRN Reason: Pain, Severe (Pain Scale 7-10) Last Admin: 12/07/22 11:13 Dose: 0.25 mg Documented By: FOZIA Hydromorphone HCl (Hydromorphone Hcl 1 Mg/Ml Syringe) 1 mg IVPUSH Q4H PRN; Protocol PRN Reason: Pain, Severe (Pain Scale 7-10) Last Admin: 12/08/22 11:08 Dose: 1 mg Documented By: FOZIA Piperacillin Sod/Tazobactam (Sod 3.375 gm/ Sodium Chloride) 50 mls @ 100 mls/hr IV Q6H [facility] Last Infusion: 12/08/22 11:50 Dose: Infused Documented By: FOZIA Vancomycin HCl 1,000 mg/ (Sodium Chloride) 270 mls @ 270 mls/hr IV Q12H [facility] Last Admin: 12/08/22 11:45 Dose: 270 mls/hr Documented By: FOZIA Lactated Ringer's (Lr) 1,000 mls @ 80 mls/hr IVCONT .[id number] [facility] Last Admin: 12/08/22 11:45 Dose: 80 mls/hr Documented By: FOZIA Methadone HCl (Methadone Hcl 20 Mg/2 Ml Oral.Conc) 55 mg PO DAILY [facility] Last Admin: 12/08/22 08:08 Dose: 55 mg Documented By: FOZIA Nicotine (Nicotine 21 Mg Patch.Td24) 21 mg TRANSDERMA DAILY [facility] Last Admin: 12/08/22 08:07 Dose: 21 mg Documented By: FOZIA Ondansetron HCl (Ondansetron Hcl 4 Mg/2 Ml Vial) 4 mg IVPUSH Q8H PRN PRN Reason: Nausea and Vomiting Ondansetron HCl (Ondansetron Hcl 4 Mg/2 Ml Vial) 4 mg IVPUSH ONCE PRN PRN Reason: Nausea and Vomiting Oxycodone HCl (Oxycodone Hcl Immed Release 5 Mg Tablet) 10 mg PO Q4H PRN PRN Reason: Pain, Mild (Pain Scale 1-3) Last Admin: 12/06/22 19:42 Dose: 10 mg Documented By: CONSUELO Pharmacy Consult (Consult Rx Vancomycin Dosing) 1 each MISCELLANE DAILY PRN PRN Reason: Consult order Sodium Chloride (0.9 % Sodium Chloride Flush 3 Ml Syringe) 3 ml IVFLUSH QSHIFT [facility] Last Admin: 12/08/22 07:09 Dose: Not Given Documented By: FOZIA Non-Admin Reason: IV Running Labs 12/04/22 17:36 12/08/22 05:50 Labs: Laboratory Results - last 24 hr 12/08/22 12/08/22 05:50 10:55 Estim Creat Clear Calc 91.2 Estimated GFR > 60 Random Vancomycin 11.9 L Microbiology Microbiology Results: Microbiology 12/05/22 13:39 Gram Stain - Final Finger Right Middle Routine Culture - Final Staphylococcus aureus Assessment and Plan (1) Infection of right hand: Status: Acute (2) Cellulitis of right middle finger: Status: Acute (3) Necrosis of finger: Status: Acute Plan 52-year-old male with a PMH significant for?daily IV heroin use otherwise no known medical conditions or home medications who presents to the ED for re-evaluation of infection of 3rd digit of right hand. Patient 1st noticed redness and swelling in his finger approximately 1 week ago. Of note, patient was admitted to the hospital for the same condition but left AMA before amputation of digit could be performed. Pt will be admitted to the hospital for right third digit cellulitis with likely necrosis. 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 reeval for I&D in am. npo past midnight acute Lactic acidosis Lactic acidosis resolved. received IVF in ED lactic acidosis resolved. Pt does not meet sepsis criteria Nicotine use disorder Patient smokes 1/2-1 pack a day Nicotine patch Polysubstance use disorder Addiction Team consult Monitor for withdrawal Full Code DVT Prophylaxis: Lovenox ongoing hospitalization need: treatment of?cellulitis right finger with wet gangrene with IV antibiotics and likely surgical procedure. Time Spent With Patient Time: Total time managing care of this patient today ____ minutes. Quality Stroke Does the patient have a stroke diagnosis?: No VTE Prior VTE?: No VTE Risk Level:: Medical - moderate - high VTE Device Contraindication: Treatment Not Indicated VTE Drug Contraindication: N/A - Med Ordered
[2022-12-08 15:14] VITALS: BP 148/86; PULSE 65; RESP 18; TEMP 36.6; O2SAT 98
[2022-12-08] MEDS: Enoxaparin Sodium 40 MG/0.4 ML SYRINGE SUBCUT (17:41)
[2022-12-08 23:17] VITALS: BP 90/66; PULSE 67; RESP 20; TEMP 36.5; O2SAT 98
[2022-12-08] MEDS: traZODone HCL 50 MG TABLET PO (23:58)
[2022-12-09] MEDS: HYDROmorphone HCl 1 MG/ML SYRINGE IVPUSH ×5 (00:08→21:19)
[2022-12-09] MEDS: vancomycin HCL 1,000 MG in 0.9 % Sodium Chloride 250 ML 270 MG IV (00:09)
[2022-12-09] MEDS: Lactated Ringers 1,000 ML 80 ML IVCONT ×2 (02:18→14:52)
[2022-12-09] MEDS: Piperacillin Sodium/Tazobactam 3.375 GM in 0.9 % Sodium Chloride 50 ML IV ×3 (05:40→18:05)
[2022-12-09 06:01] VITALS: BP 93/63; BP 94/68
[2022-12-09 06:18] LABS: Creatinine Clr Calc Pharmacy 83.7; Estimated Glomerular Filt Rate > 60
[2022-12-09 08:00] VITALS: BP 132/75; PULSE 68; RESP 20; TEMP 36.7; O2SAT 100
--- NOTE | 2022-12-09 08:42 | PM.PNORT ---
Subjective Subjective Date of Service: 12/09/22 Interval history: POD4 s/p . Right middle finger I and D Of soft tissue, bone and DIP joint. 2. Right middle finger amputation through DIP joint. Patient is resting in bed comfortably. No overnight events. Pain is well managed. No additional complaints. Physical Exam Vital Signs: Vital Signs: Last Vital Signs Temp 98.0 F 12/09/22 08:00 Pulse 68 12/09/22 08:00 Resp 20 12/09/22 08:00 BP 132/75 12/09/22 08:00 Pulse Ox 100 12/09/22 08:00 O2 Del Method Room Air 12/09/22 08:00 BMI result Body Mass Index 21.2 Const: General: cooperative, healthy appearing and no acute distress Resp: Effort & Inspection: normal respiratory effort and able to speak in complete sentences Cardio: Rate: regular rate Peripheral pulses: Peripheral pulses 2+ throughout GI: Palpation (GI): Soft to palpation Skin: Lesions: no lesions Rashes: no rashes Extrem: Other: Right middle finger bandages are c/d/i. Able to move all digits. Procedures Date of Service Date of Service: 12/09/22 Progress Note: A&P Assessment and plan (1) Necrosis of finger: Status: Acute Assessment and Plan: Keep dressing c/d/i Dr. Vasquez to evaluate if return to OR is appropriate Pain management as appropriate (2) Infection of right hand: Status: Acute (3) Opioid use disorder: Status: Acute (4) Cellulitis of right middle finger: Status: Acute (5) Wet gangrene: Status: Acute (6) Cellulitis: Status: Acute (7) Polysubstance use disorder: Status: Acute (8) Tobacco use disorder: Status: Acute (9) IV drug user: Status: Acute Time Spent With Patient Time: Total time managing care of this patient today ____ minutes. Quality Stroke Does the patient have a stroke diagnosis?: No VTE Prior VTE?: No VTE Risk Level:: Medical - moderate - high VTE Device Contraindication: Treatment Not Indicated VTE Drug Contraindication: N/A - Med Ordered
[2022-12-09] MEDS: methADONE HCl 20 MG/2 ML ORAL.CONC 60 MG PO (08:53)
[2022-12-09] MEDS: Nicotine 21 MG PATCH.TD24 TRANSDERMA (08:57)
[2022-12-09] MEDS: cloNIDine HCL 0.1 MG TABLET PO ×2 (09:41→20:15)
[2022-12-09 11:37] LABS: Vancomycin Random 10.8 mcg/mL (15-20)
[2022-12-09] MEDS: vancomycin HCL 750 MG in 0.9 % Sodium Chloride 250 ML 265 MG IV ×2 (12:18→20:04)
--- NOTE | 2022-12-09 14:28 | MHC.CM.PN ---
EMR REVIEWED AND PER MD ROUNDS, PT IS NOT MEDICALLY CLEARED FOR DC. CONTINUES TO BE EVAL FOR POSSIBLE RETURN TO OR FOR WET GANGRENE RIGHT HAND, CONTINUES ON IV ABT. CM WILL CONTINUE TO FOLLOW FOR CHANGE IN DC PLAN/NEEDS
--- NOTE | 2022-12-09 15:27 | P.PNIM_ITS ---
Subjective Subjective Date of Service: 12/09/22 Interval History: right middle finger infection Review of Systems Denies any nausea vomiting or diarrhea No fevers. Physical Exam 2 Vital Signs: Vital Signs: Last Vital Signs Temp 98.0 F 12/09/22 08:00 Pulse 68 12/09/22 08:00 Resp 20 12/09/22 08:00 BP 132/75 12/09/22 08:00 Pulse Ox 100 12/09/22 08:00 O2 Del Method Room Air 12/09/22 08:00 BMI result Body Mass Index 21.2 Appearance: Alert.? Oriented X3.? cvs: rrr, [id number] . res: clear to auscultation ,no rhonchii or wheezing abd: no rebound or guarding ,nt, bs present. ext pulses present , no cyanosis . Right middle finger has bandages , no pain , Able to move all digits. neuro: axo3 , nonfocal. Objective Data Active Medications Acetaminophen (Acetaminophen 325 Mg Tablet) 650 mg PO Q6H PRN PRN Reason: Pain, Mild (Pain Scale 1-3) Last Admin: 12/06/22 19:43 Dose: 650 mg Documented By: CONSUELO Clonidine HCl (Clonidine Hcl 0.1 Mg Tablet) 0.1 mg PO BID GO; Protocol Last Admin: 12/09/22 09:41 Dose: 0.1 mg Documented By: NELSON Clonidine HCl (Clonidine Hcl 0.1 Mg Tablet) 0.1 mg PO TID PRN; Protocol PRN Reason: Opiate Withdrawal Last Admin: 12/07/22 19:44 Dose: 0.1 mg Documented By: CONSUELO Docusate Sodium (Docusate Sodium 100 Mg Capsule) 100 mg PO DAILY PRN PRN Reason: Constipation Enoxaparin Sodium (Enoxaparin Sodium 40 Mg/0.4 Ml Syringe) 40 mg SUBCUT Q24H GO Last Admin: 12/08/22 17:41 Dose: 40 mg Documented By: FOZIA Hydromorphone HCl (Hydromorphone Hcl 0.5 Mg/0.5 Ml Syringe) 0.25 mg IVPUSH Q5M PRN; Protocol PRN Reason: Pain, Severe (Pain Scale 7-10) Last Admin: 12/07/22 11:13 Dose: 0.25 mg Documented By: FOZIA Hydromorphone HCl (Hydromorphone Hcl 1 Mg/Ml Syringe) 1 mg IVPUSH Q4H PRN; Protocol PRN Reason: Pain, Severe (Pain Scale 7-10) Last Admin: 12/09/22 12:24 Dose: 1 mg Documented By: NELSON Piperacillin Sod/Tazobactam (Sod 3.375 gm/ Sodium Chloride) 50 mls @ 100 mls/hr IV Q6H [facility] Last Infusion: 12/09/22 11:49 Dose: Infused Documented By: NELSON Lactated Ringer's (Lr) 1,000 mls @ 80 mls/hr IVCONT .[id number] [facility] Last Admin: 12/09/22 14:52 Dose: 80 mls/hr Documented By: NELSON Vancomycin HCl 750 mg/ Sodium (Chloride) 265 mls @ 265 mls/hr IV Q8H [facility] Last Infusion: 12/09/22 13:20 Dose: Infused Documented By: NELSON Methadone HCl (Methadone Hcl 20 Mg/2 Ml Oral.Conc) 60 mg PO DAILY [facility] Last Admin: 12/09/22 08:53 Dose: 60 mg Documented By: NELSON Nicotine (Nicotine 21 Mg Patch.Td24) 21 mg TRANSDERMA DAILY [facility] Last Admin: 12/09/22 08:57 Dose: 21 mg Documented By: NELSON Ondansetron HCl (Ondansetron Hcl 4 Mg/2 Ml Vial) 4 mg IVPUSH Q8H PRN PRN Reason: Nausea and Vomiting Ondansetron HCl (Ondansetron Hcl 4 Mg/2 Ml Vial) 4 mg IVPUSH ONCE PRN PRN Reason: Nausea and Vomiting Oxycodone HCl (Oxycodone Hcl Immed Release 5 Mg Tablet) 10 mg PO Q4H PRN PRN Reason: Pain, Mild (Pain Scale 1-3) Last Admin: 12/06/22 19:42 Dose: 10 mg Documented By: CONSUELO Pharmacy Consult (Consult Rx Vancomycin Dosing) 1 each MISCELLANE DAILY PRN PRN Reason: Consult order Sodium Chloride (0.9 % Sodium Chloride Flush 3 Ml Syringe) 3 ml IVFLUSH QSHIFT [facility] Last Admin: 12/09/22 15:16 Dose: Not Given Documented By: NELSON Non-Admin Reason: IV Running Labs 12/04/22 17:36 12/09/22 05:33 Labs: Laboratory Results - last 24 hr 12/09/22 12/09/22 05:33 11:00 Estim Creat Clear Calc 83.7 Estimated GFR > 60 Random Vancomycin 10.8 L Assessment and Plan (1) Necrosis of finger: Status: Acute (2) Infection of right hand: Status: Acute (3) Cellulitis of right middle finger: Status: Acute Plan 52-year-old male with a PMH significant for?daily IV heroin use otherwise no known medical conditions or home medications who presents to the ED for re- evaluation of infection of 3rd digit of right hand. Patient 1st noticed redness and swelling in his finger approximately 1 week ago. Of note, patient was admitted to the hospital for the same condition but left AMA before amputation of digit could be performed. Pt will be admitted to the hospital for right third digit cellulitis with likely necrosis. 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 ortho f/u(dr boucher) -infected bone area removed,likely need po antibiotics for 2 weeks after dressing change tomorrow. acute Lactic acidosis Lactic acidosis resolved. received IVF in ED lactic acidosis resolved. Pt does not meet sepsis criteria Nicotine use disorder Patient smokes 1/2-1 pack a day Nicotine patch Polysubstance use disorder Addiction Team consult Monitor for withdrawal Full Code DVT Prophylaxis: Lovenox ongoing hospitalization need: treatment of?cellulitis right finger with wet gangrene with IV antibiotics and likely surgical procedure. Time Spent With Patient Time: Total time managing care of this patient today ____ minutes. Quality Stroke Does the patient have a stroke diagnosis?: No VTE Prior VTE?: No VTE Risk Level:: Medical - moderate - high VTE Device Contraindication: Treatment Not Indicated VTE Drug Contraindication: N/A - Med Ordered
[2022-12-09 15:39] VITALS: BP 108/61; PULSE 60; RESP 20; TEMP 36.8; O2SAT 99
--- NOTE | 2022-12-09 16:57 | MHC.RECOVRN ---
T/w met with pt at approx 11:45. Pt reports he feels good with his MTD dose- states minimal withdrawal symptoms reports little sweats now and then, chills , reports adequate pain control. Pt wishing to go up on his dose tomorrow. Pt made aware that recovery team will be referring him to [facility] to resume services with the clinic, pt agreeable to plan.
[2022-12-09] MEDS: Enoxaparin Sodium 40 MG/0.4 ML SYRINGE SUBCUT (18:09)
[2022-12-09 19:58] VITALS: BP 126/79; PULSE 76; RESP 14; TEMP 36.3; O2SAT 97
[2022-12-09 23:48] VITALS: BP 119/67; PULSE 65; RESP 16; TEMP 36.4; O2SAT 98
[2022-12-10] MEDS: 0.9 % Sodium Chloride Flush 3 ML SYRINGE IVFLUSH ×2 (00:04→07:55)
[2022-12-10] MEDS: Piperacillin Sodium/Tazobactam 3.375 GM in 0.9 % Sodium Chloride 50 ML IV ×2 (00:04→05:49)
[2022-12-10] MEDS: HYDROmorphone HCl 1 MG/ML SYRINGE IVPUSH (01:30)
[2022-12-10] MEDS: Melatonin 3 MG TABLET 6 MG PO (02:06)
[2022-12-10] MEDS: vancomycin HCL 750 MG in 0.9 % Sodium Chloride 250 ML 265 MG IV (04:37)
[2022-12-10 06:28] LABS: Creatinine Clr Calc Pharmacy 91.2; Estimated Glomerular Filt Rate > 60
[2022-12-10 07:33] VITALS: BP 138/76; PULSE 61; RESP 16; TEMP 36.1; O2SAT 99
[2022-12-10] MEDS: cloNIDine HCL 0.1 MG TABLET PO (07:52)
[2022-12-10] MEDS: Nicotine 21 MG PATCH.TD24 TRANSDERMA (07:52)
[2022-12-10] MEDS: methADONE HCl 20 MG/2 ML ORAL.CONC 60 MG PO (07:52)
--- NOTE | 2022-12-10 09:06 | P.DS_ITS ---
DS: Providers Provider Date of Service: 12/10/22 Date of admission: 12/04/22 18:41 Primary care physician: Brenda Donovan MD Consults: 12/04/22 18:41 Addiction Medicine Routine Consulting Provider: Addiction Covering Reason for consultation: Daily IV heroin use 12/04/22 18:47 Consult to Orthopedics Routine Consulting Provider: [facility] Orth[facility] Surgeons Reason for consultation: Third digit of right hand infection, need for amputation 12/05/22 15:52 Consult to Infectious Diseases Routine Consulting Provider: [facility] Infectious Disease Reason for consultation: 3rd digit infection DS: Diagnosis Discharge Diagnosis (1) Necrosis of finger: Status: Acute (2) Infection of right hand: Status: Acute (3) Cellulitis of right middle finger: Status: Acute DS: Summary Hospital Course Hospital Course: Chief Complaint: Right middle finger infection Pt is a 52-year-old male with a PMH significant for?daily IV heroin use otherwise no known medical conditions or home medications who presents to the ED for re-evaluation of infection of 3rd digit of right hand. Patient 1st noticed redness and swelling in his finger approximately 1 week ago. Patient states finger has been red, swollen, warm, and occasionally has had purulent drainage. Patient initially presented to the hospital 2 days ago and was seen by Orthopedics. He was admitted to the hospital and set to have his right 3rd digit amputated but patient left AMA without a reason prior to surgery. Patient re-presented to the emergency department today and states he wishes to be readmitted for resolution of his infection. Patient denies any known injury or trauma to the area. Patient admits to being a daily user of IV heroin, last used 2 bags last night, averages 1/2 a bundle a day. Patient denies injecting into his finger. Patient also admits to using cocaine, and is a daily smoker of 1/2- 1 pack of cigarettes daily. Patient denies fever, chills, nausea, vomiting. No chest pain/pressure, palpitations. Denies shortness of breath. In the ED patient was afebrile but tachycardic up to 109. Labs were significant for stable H&H of 13.3/40.0, lactic acid 2.3. Electrolytes WNL. Renal function baseline. Hepatic function baseline. CRP from 2 days prior 0.83. X-ray of right hand on 12/02/2022 showed flexion at the distal interphalangeal joint of 3rd digit with the tuft of the distal phalanx of 3rd digit not well seen. Also found bone densities along the soft tissues of the distal phalanx 3rd digit may relate to prior fracture. Pt was treated with hydromorphone, Zosyn, vancomycin, and IVF. Pt will be admitted to the hospital for right third digit cellulitis with likely necrosis. 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 Wound culture grew Staph Aureus. He has been treated with IV Vanco and Zosyn and will discharge with Keflex. Final Diagnosis: Cellulitis of the finger possibly of osteomylitis of the finger now ampuated MSSA infection Substance use desorder Time Spent with Patient Time attestation: Total time managing care of this patient today ____ minutes. Discharge coordination time: Greater than 30 minutes Quality: Safe Use of Opioids Does Pt have an Active Cancer Diagnosis on the Problem List?: No Quality: Stroke Does the patient have a stroke diagnosis?: No Physical Exam Vital Signs: Vital Signs: Last Vital Signs Temp 96.9 F 12/10/22 07:33 Pulse 61 12/10/22 07:33 Resp 16 12/10/22 07:33 BP 138/76 12/10/22 07:33 Pulse Ox 99 12/10/22 07:33 O2 Del Method Room Air 12/10/22 07:33 BMI result Body Mass Index 21.2 DS: Data Data Completed and Pending Completed studies during hospitalization [Text1]: Pending at discharge 12/05/22 13:42 Surgical [PTH] Routine Procedures Insertion of Infusion Device into Upper Vein, Percutaneous Approach (12/02/22) Labs on day of discharge: Laboratory Results - last 24 hr 12/09/22 12/10/22 11:00 06:01 Creatinine 0.89 Estim Creat Clear Calc 91.2 Estimated GFR > 60 Random Vancomycin 10.8 L Discharge Plan Discharge Anticipated Discharge Date/Time: 12/10/22 09:36 Patient Disposition: Home, Self-Care Discharge Diagnosis: Cellulitis and gangrene of the finger Referrals: Jennfier Price PA-C [Physician [employer] Examiner] - 12/17/22 1:15 pm (Dec 17 13:15) Physician,Ayleen Le [Physician] - 1 Week Discharge Medications: New cefadroxil 500 mg capsule 500 mg PO BID Qty: 14 0RF Discharge Orders: Discharge Order (Routine); Ordered 12/10/22 Ordered By: Brendan Monte Diet: Advance to usual diet Activity on Discharge: As tolerated Stand Alone Forms: Patient Portal Discharge page Care Plan Goals: recovery from cellulitis and infected finger Health Concerns: Infected finger, cellulitis Plan of Treatment: Take Cefadroxil 500 mg twice daily for 7 days Follow up with Dr. Brissa Vasquez in 7 days Daily dry dressing Assessment: jerri ramirez Discharge Date/Time: 12/10/22 12:31
--- NOTE | 2022-12-10 10:14 | MHC.CM.PN ---
DP: PT HAS BEEN MEDICALLY CLEARED FOR DC HOME, NO SERVICES. C SHUTTLE HAS BEEN BOOKED FOR 12:30 PM.
[2022-12-10 10:19] LABS: Vancomycin Random 8.7 mcg/mL (15-20)
--- NOTE | 2022-12-10 10:36 | HE.PHANOTE ---
RE: VANCO DOSING TROUGH IS LOW AT 8.7. INCREASED DOSE TO 1250 Q12 AND CHECKING LEVEL AGAIN 12/11 @0900 TO ENSURE PROPER DOSING
== END 2022-12-10 12:31 | disposition home or self-care (01) | DRG 180 ==
LOC: HO.ED 17:08 → HO.EDOVER 19:05 → HO.S3 12-05 15:23
PROVIDERS: Internal Medicine; Nurse Practitioner Family; Nurse Practitioner Psychiatric/Mental Health; Orthopaedic Surgery; Admitting Provider Student in an Organized Health Care Education/Training Program; Emergency Provider Student in an Organized Health Care Education/Training Program; PCP Internal Medicine; Visit Provider Internal Medicine
PROC: 0X6Q0Z3 Detachment at Right Middle Finger, Low, Open Approach (ICD-10-PCS; principal; 2022-12-05 15:40)
DX: I96 Gangrene, not elsewhere classified (principal); E87.21 Acute metabolic acidosis; L03.011 Cellulitis of right finger; B95.61 Methicillin susceptible Staphylococcus aureus infection as the cause of diseases classified elsewhere; M86.641 Other chronic osteomyelitis, right hand; F17.210 Nicotine dependence, cigarettes, uncomplicated; Z71.6 Tobacco abuse counseling; F11.23 Opioid dependence with withdrawal; Z91.148 Patient's other noncompliance with medication regimen for other reason
CPT/HCPCS: 36415; 80048; 80076; 80202; 82565; 83605; 85025; 86704; 86706; 86709; 86803; 87040; 87070; 87077; 87186; 87205; 87340; 87389; 88305; 88311; 93005; 99285; J1100; J1170; J1650; J2060; J2250; J2270; J2405; J2543; J2795; J3010; J3370

== ENCOUNTER → 2022-12-04 18:41 | Outpatient (BNV) | payer MEDICAID, SELFPAY | PROVIDERS: Admitting Provider Student in an Organized Health Care Education/Training Program; Emergency Provider Student in an Organized Health Care Education/Training Program; Visit Provider Orthopaedic Surgery | DX: I96 Gangrene, not elsewhere classified (principal); L08.9 Local infection of the skin and subcutaneous tissue, unspecified; F11.90 Opioid use, unspecified, uncomplicated; L03.011 Cellulitis of right finger; L03.90 Cellulitis, unspecified; F19.90 Other psychoactive substance use, unspecified, uncomplicated; F17.200 Nicotine dependence, unspecified, uncomplicated | CPT/HCPCS: 26034; 26951; 99024; 99232 ==

== ENCOUNTER → 2022-12-04 18:41 | Outpatient (BNV) | payer MEDICAID, SELFPAY | PROVIDERS: Admitting Provider Student in an Organized Health Care Education/Training Program; Emergency Provider Student in an Organized Health Care Education/Training Program; Visit Provider Internal Medicine | DX: I96 Gangrene, not elsewhere classified (principal); L08.9 Local infection of the skin and subcutaneous tissue, unspecified | CPT/HCPCS: 99222 ==

== ENCOUNTER → 2022-12-04 18:41 | Outpatient (BNV) | payer SELFPAY | PROVIDERS: Admitting Provider Student in an Organized Health Care Education/Training Program; Emergency Provider Student in an Organized Health Care Education/Training Program; Visit Provider Nurse Practitioner Psychiatric/Mental Health | DX: F11.93 Opioid use, unspecified with withdrawal (principal) | CPT/HCPCS: 99231 ==

== ENCOUNTER → 2022-12-04 18:41 | Outpatient (BNV) | payer MEDICAID, SELFPAY | PROVIDERS: Admitting Provider Student in an Organized Health Care Education/Training Program; Emergency Provider Student in an Organized Health Care Education/Training Program; Visit Provider Internal Medicine | DX: I96 Gangrene, not elsewhere classified (principal); L08.9 Local infection of the skin and subcutaneous tissue, unspecified; L03.011 Cellulitis of right finger | CPT/HCPCS: 99223; 99232; 99239 ==

== ENCOUNTER 2022-12-17 11:19 | Outpatient (REF) | payer MEDICAID, SELFPAY | END 2022-12-17 11:20 | disposition home or self-care (01) | LOC: HO.HOSX 11:19 | PROVIDERS: Visit Provider Orthopaedic Surgery | DX: Z13.89 Encounter for screening for other disorder (principal) ==

== ENCOUNTER 2023-03-02 17:02 | Emergency (ER) | payer OTHER, SELFPAY ==
[2023-03-02 17:14] VITALS: BP 132/77; BP 178/98; PULSE 103; PULSE 110; RESP 20; TEMP 36.8; O2SAT 97; O2SAT 98; BMI 24.1
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
== END 2023-03-02 17:41 | disposition home or self-care (01) ==
LOC: HO.ED 17:29
PROVIDERS: Emergency Provider Internal Medicine
DX: S01.01XA Laceration without foreign body of scalp, initial encounter (principal); X99.1XXA Assault by knife, initial encounter; Y93.89 Activity, other specified; Y92.9 Unspecified place or not applicable; Y99.9 Unspecified external cause status; F19.90 Other psychoactive substance use, unspecified, uncomplicated
CPT/HCPCS: 12002; 99283; 99284

== ENCOUNTER 2023-12-03 13:40 | Emergency (ER) | payer OTHER, SELFPAY ==
--- NOTE | ~2023-12-03 | XR_ITS ---
EXAMINATION: XR RIBS, LEFT CLINICAL INFORMATION: Left rib pain COMPARISON: None available. TECHNIQUE: 3 views of the left ribs were obtained. FINDINGS: Lungs are clear. No consolidation, pneumothorax, or pleural effusion. The cardiomediastinal silhouette and pulmonary vasculature are normal. Osseous structures are unremarkable. No acute fractures. There are multiple chronic 3-5 fractures. There are multiple healing 9-11 rib fractures. XR/XR ribs LT min 3V w CXR1V IMPRESSION: Multiple healing left rib fractures. No definite acute fractures. Electronically signed by: Alia Mackey MD 12/03/2023 07:36 PM EDT
[2023-12-03 13:43] VITALS: BP 136/80; PULSE 84
[2023-12-03 13:49] VITALS: BP 121/78; PULSE 69; RESP 20; TEMP 36.1; O2SAT 96; BMI 22.8
--- NOTE | 2023-12-03 13:59 | PC.NURSE ---
patients belongings in c4
--- NOTE | 2023-12-03 14:02 | ED_ITS ---
HPI - Alcohol General Chief Complaint: ETOH/Substance Use Stated Complaint: LT SIDED CP,ETOH,POLYSUB USE PER EMS Time Seen by Provider: 12/03/23 13:41 Source: patient, EMS and old records reviewed Mode of arrival: EMS Limitations: no limitations History of Present Illness ED Provider: KATLIN HPI narrative: 53 yo male with PMH of ETOH abuse, drug abuse, here with c/o noticing his L ribs are prominent but denies trauma or pain he states he noted it when he was drinking. He noticed it about a week ago. Denies prior trauma or injury to the area. No rash or infectious symptoms. MD complaint: alcohol intoxication (rib lump) Last drink: Hours (ago) Chronic alcohol use: Yes Previous visits for alcohol intoxication: Yes Recent trauma: No Associated symptoms: other (lump on rib) Treatments prior to arrival: none Related Data Previous Rx's ?Medication ?Instructions ?Recorded cefadroxil 500 mg capsule 500 mg PO BID #14 caps 12/10/22 Allergies Allergy/AdvReac Type Severity Reaction Status Date / Time No Known Allergies Allergy Verified 12/03/23 13:49 [No Known Allergies*] Review of Systems Review of Systems: Constitutional : No Fever, No Chills, No Fatigue ENT/Mouth : No sore throat, No Rhinorrhea Eyes: No Eye Pain, No Swelling, No Redness Cardiovascular : No Chest Pain, No SOB, No Dyspnea on Exertion, pos rib lump Respiratory : No Cough, No Sputum Gastrointestinal : No Nausea, No Vomiting, No Diarrhea, No abdominal Pain Genitourinary : No Dysuria, No Urinary Frequency, No Hematuria, Musculoskeletal : No joint pain, No Myalgias, No Joint Swelling Skin : No Skin Lesions, No rash Neuro : No Weakness, No Numbness, No Dizziness, no Headache Psych : No Anxiety/Panic, No Depression All other systems reviewed and are negative PMFSH Past Medical History Attestation statement: The following information was validated with the patient. Source: old records reviewed Medical History IV drug user Tobacco use disorder Polysubstance use disorder Social History Social History Household Members: Significant Other Housing: Apartment Do you presently have visiting nurse or other home services: No Alcohol intake: current Alcohol intake frequency: a few times a month Alcohol type: beer Patient Tobacco Use Status: Current everyday Tobacco user Tobacco use type: Cigarette Cigarette Packs Per Day: 0.5 Cigarettes Per Day: 10.0 Years Smoked: 30 e-Cigarette/Vaping Use: Never Used Substance Use Type: Crack/Cocaine, Heroin and Marijuana Advance Directives: Yes Advance Directives Information Provided: No Advance Directives on File: Yes Advance Directives Date on File: 12/02/22 Do you have a plan to hurt others: No Plan service: No Physical Exam ED Vital Signs: Vital Signs - 24 hr 12/03/23 13:49 Temperature 96.9 F Pulse Rate 69 Respiratory Rate 20 Blood Pressure 121/78 Pulse Oximetry 96 Oxygen Delivery Method Room Air BMI result Body Mass Index 22.8 Appearance: Alert. Oriented X3. No acute distress. ETOH odor, appears under the influence Eyes: Pupils equal, round and reactive to light. ENT: Pharynx normal. atraumatic Neck: Normal inspection. Neck supple. CVS: Normal heart rate and rhythm. Pulses normal. Chest: L rib prominent near sternum but no bruising, crepitus or signs of trauma Respiratory: No respiratory distress. Breath sounds normal. Abdomen: Soft and non-tender. Skin: Skin warm and dry. Normal skin color. Extremities: No lower extremity edema. pick suarez on UE, track suarez Neuro: Oriented X 3. No motor deficit. No sensory deficit. Course Course Course Narrative: signed out to Dr. Rubio pending xray and MTF Medical Decision Making Medical Decision Making MDM Narrative: 53 yo male with PMH of ETOH abuse, drug abuse, here with c/o noticing lump on L rib - no recent trauma, no signs of infection or mass, no pain or erythema to suggest infection - xray ordered. declines SUDE, detox, no SI/HI. Differential Diagnosis Differential Diagnoses: The differential diagnosis associated with the pres entation includes rib contusion, old healed deformity Independent Interpretation I performed an independent interpretation of an: Plain X-Ray Independent Historian Clinical information obtained from an independent historian. History obtained from or confirmed by: EMS External Record Review External record reviewed: Inpatient record Discharge Plan Discharge Clinical Impression: Alcoholic intoxication, Rib pain on left side Patient Disposition: Still a Patient Instructions: Abuse of Alcohol (ED), Rib Contusion (ED) Prescriptions: No Action cefadroxil 500 mg capsule 500 mg PO BID Qty: 14 0RF Print Language: Yoruba
--- NOTE | 2023-12-03 16:05 | PC.NURSE ---
continues to yell in hallway I'm going to , it's fucking cancer I know it is . patient reminded to not use foul language as there are families present.
[2023-12-03 18:31] VITALS: BP 121/78; PULSE 69; RESP 20; TEMP 36.1; O2SAT 96
== END 2023-12-03 18:32 | disposition home or self-care (01) ==
PROVIDERS: Emergency Provider Emergency Medicine; PCP Internal Medicine
DX: F10.129 Alcohol abuse with intoxication, unspecified (principal); R07.81 Pleurodynia
CPT/HCPCS: 71101; 99283; 99284